=== PATIENT | female | born 1980 | race Caucasian/White ===

== ENCOUNTER 2019-12-19 21:12 | Emergency (ER) | payer BC ==
--- NOTE | 2019-12-19 21:47 | EDM.PDOC ---
ED HPI GENERAL MEDICAL PROBLEM - General Chief Complaint: General Stated Complaint: covid exposure Time Seen by Provider: 12/19/19 21:29 - History of Present Illness INITIAL COMMENTS - FREE TEXT/NARRATIVE: The patient was living with a sibling in [place] from the first until the seventh of this month. He was continuous expose the patient he now found out is asymptomatic with COVID positive. His sister was COVID positive. Patient has no symptoms. He does want to know if he should go back to work or would expose his work mates. - Related Data Allergies Allergy/AdvReac Type Severity Reaction Status Date / Time No Known Allergies Allergy Verified 12/19/19 21:33 Home Meds: Home Meds Aspirin 81 mg PO DAILY 12/19/19 [History] Pnv No.95/Ferrous Fum/Folic AC [ Caplet] 1 tab PO DAILY 12/19/19 [History] Past Medical History Genitourinary History: Reports: Renal Calculus - Past Surgical History HEENT Surgical History: Reports: Adenoidectomy, Tonsillectomy GI Surgical History: Reports: Appendectomy Social & Family History - Tobacco Use Smoking Status *Q: Never Smoker Second Hand Smoke Exposure: Yes - Recreational Drug Use Recreational Drug Use: No ED ROS GENERAL - Review of Systems Review Of Systems: Comprehensive ROS is negative, except as noted in HPI. ED EXAM, GENERAL - Physical Exam Exam: See Below Free Text/Narrative:: My physical exam is in the HPI Course - Vital Signs Last Recorded V/S: Last Vital Signs Temp 96.4 F L 12/19/19 21:31 Pulse 66 12/19/19 21:31 Resp 16 12/19/19 21:31 BP 116/71 12/19/19 21:31 Pulse Ox 98 12/19/19 21:31 Departure - Departure Time of Disposition: 21:46 Disposition: Home, Self-Care 01 Condition: Good Clinical Impression: Exposure to infectious patient in closed environment for extended period - Discharge Information Instructions: Infection Prevention in the Home Referrals: PCP,None [Primary Care Provider] - Forms: ED Department Discharge Additional Instructions: Is reviewed the COVID-19 [place] instructions per CDC guidelines. The clinic in [place] is open on the weekend and our respiratory clinic can do your testing on Sunday if you come in the morning The following information is given to patients seen in the emergency department who are being discharged to home. This information is to outline your options for follow-up care. We provide all patients seen in our emergency department with a follow-up referral. The need for follow-up, as well as the timing and circumstances, are variable depending upon the specifics of your emergency department visit. If you don't have a primary care physician on staff, we will provide you with a referral. We always advise you to contact your personal physician following an emergency department visit to inform them of the circumstance of the visit and for follow-up with them and/or the need for any referrals to a consulting specialist. The emergency department will also refer you to a specialist when appropriate. This referral assures that you have the opportunity for follow-up care with a specialist. All of these measure are taken in an effort to provide you with optimal care, which includes your follow-up. Under all circumstances we always encourage you to contact your private physician who remains a resource for coordinating your care. When calling for follow-up care, please make the office aware that this follow-up is from your recent emergency room visit. If for any reason you are refused follow-up, please contact the [facility] Emergency Department at and asked to speak to the emergency department charge nurse. Sepsis Event Note (ED) - Evaluation Sepsis Screening Result: No Definite Risk - Focused Exam Vital Signs: Vital Signs Temp Pulse Resp BP Pulse Ox 12/19/19 21:31 96.4 F L 66 16 116/71 98
== END 2019-12-19 22:06 | disposition home or self-care (01) ==
LOC: MW.ED 21:12
DX: Z20.828 Contact with and (suspected) exposure to other viral communicable diseases (principal); Z77.22 Contact with and (suspected) exposure to environmental tobacco smoke (acute) (chronic); Z79.82 Long term (current) use of aspirin
CPT/HCPCS: 99281

== ENCOUNTER 2020-03-11 00:13 | Observation (INO) | payer BC ==
[2020-03-11] MEDS ORDERED: Lidocaine 1% 50 ML MDV INJECT PRN (00:30)
[2020-03-11] MEDS ORDERED: Misoprostol 200 MCG Tab PO PRN (00:30)
[2020-03-11] MEDS ORDERED: Terbutaline 1 MG/ML SDV SUBCUT PRN (00:30)
[2020-03-11] MEDS ORDERED: Ondansetron 4 MG Tab.DIS PO PRN (00:30)
[2020-03-11] MEDS ORDERED: Misoprostol 25 MCG (1/4 of 100 MCG) Tab VAG PRN (00:30)
[2020-03-11] MEDS ORDERED: Methylergonovine 0.2 MG/1 ML Amp IM PRN (00:30)
[2020-03-11] MEDS ORDERED: Sodium Chloride 0.9% 2.5 ML Syringe FLUSH PRN (00:30)
[2020-03-11] MEDS ORDERED: hydrOXYzine HCl 25 MG Tab PO PRN (00:30)
[2020-03-11] MEDS ORDERED: Butorphanol 1 MG/ML SDV IVPUSH PRN (00:30)
[2020-03-11] MEDS ORDERED: Sodium Chloride 0.9% 10 ML SDV IV PRN (00:30)
[2020-03-11] MEDS ORDERED: Water For Irrigation,Sterile 1,000 ML Container IRR PRN (00:30)
[2020-03-11] MEDS ORDERED: Nalbuphine 10 MG/1 ML Vial IVPUSH PRN (00:30)
[2020-03-11] MEDS ORDERED: Carboprost Tromethamine 250 MCG/1 ML Amp IM PRN (00:30)
[2020-03-11] MEDS ORDERED: Tranexamic Acid 1,000 MG in Sodium Chloride 0.9% 100 ML IV PRN (00:30)
[2020-03-11] MEDS ORDERED: Oxytocin/0.9 % Sodium Chloride 30 UNIT/500 ML BAG IV SCH ×2 (00:30)
[2020-03-11] MEDS ORDERED: Sodium Chloride 0.9% 10 ML Syringe FLUSH PRN (00:30)
[2020-03-11] MEDS: Misoprostol 25 MCG (1/4 of 100 MCG) Tab PO SCH ×4 (02:01→20:54)
[2020-03-11] MEDS: Lactated Ringers 1,000 ML IV SCH ×2 (02:59→04:01)
[2020-03-11] MEDS: Misoprostol 25 MCG (1/4 of 100 MCG) Tab VAG PRN ×3 (07:57→20:54)
--- NOTE | 2020-03-11 08:41 | PCM.LDHP ---
L&D History of Present Illness - General Date of Service: 03/11/20 Admit Problem/Dx: Patient Status Order with Admit Dx/Problem 03/11/20 00:30 Patient Status [ADT] Routine Admission Diagnosis/Problem Admission Diagnosis/Problem 03/11/20 08:35 at 38 6/7 weeks (ELVIRA: 03/19/20) presenting to L&D for IOL due to AMA and GDMA1. This is the result of IVF. Most recent growth ultrasound on 02/26/20 noted EFW 2523 grams (5 lb 9 oz), 10th percentile. Rubella immune, A+, GBS negative. Vertex presentation confirmed by Hemnath's. SVE 0cm/thick/closed/posterior/-1 station per nurse report Source of Information: Patient History Limitations: Reports: No Limitations - Related Data Allergies/Adverse Reactions: Allergies Allergy/AdvReac Type Severity Reaction Status Date / Time No Known Allergies Allergy Verified 03/04/20 11:43 Home Medications: Home Meds Aspirin 81 mg PO DAILY 12/19/19 [History] Pnv No.95/Ferrous Fum/Folic AC [ Caplet] 1 tab PO DAILY 12/19/19 [History] Past Medical History Genitourinary History: Reports: Renal Calculus [employer]IVE History: Reports: Endocrine/Metabolic History: Reports: Diabetes, Gestational - Past Surgical History HEENT Surgical History: Reports: Adenoidectomy, Tonsillectomy GI Surgical History: Reports: Appendectomy Social & Family History - Family History Family Medical History: No Pertinent Family History - Tobacco Use Tobacco Use Status *Q: Never Tobacco User Second Hand Smoke Exposure: No - Caffeine Use Caffeine Use: Reports: Coffee, Soda, Tea - Recreational Drug Use Recreational Drug Use: No H&P Review of Systems - Review of Systems: Review Of Systems: See Below General: Reports: No Symptoms HEENT: Reports: No Symptoms Pulmonary: Reports: No Symptoms Cardiovascular: Reports: No Symptoms Gastrointestinal: Reports: No Symptoms Genitourinary: Reports: No Symptoms Musculoskeletal: Reports: No Symptoms Skin: Reports: No Symptoms Psychiatric: Reports: No Symptoms Neurological: Reports: No Symptoms Hematologic/Lymphatic: Reports: No Symptoms Immunologic: Reports: No Symptoms L&D Exam - Exam Exam: See Below - Vital Signs Weight: 224 lb - OB Specific Movement: Active Heart Tones: Present Heart Rate (FHR) Variability: Moderate (6-25 bmp) Presentation: Vertex - Lambert Score Lambert Score Cervix Position: Posterior Lambert Score Consistency: Medium Lambert Score Effacement: 0-30% Lambert Score Dilation: Closed Lambert Score 's Station: -1 ,0 Lambert Score Total: 3 - Exam General: Alert, Oriented, Cooperative Lungs: Normal Respiratory Effort Cardiovascular: Regular Rate, Regular Rhythm GI/Abdominal Exam: Soft, Non-Tender Rectal Exam: Deferred Genitourinary: Deferred Back Exam: Normal Inspection, Full Range of Motion Extremities: Normal Inspection, Normal Range of Motion, Non-Tender, Normal Capillary Refill Skin: Warm, Dry, Intact Neurological: Normal Speech, Normal Tone, Sensation Intact Psychiatric: Alert, Normal Affect, Normal Mood - Patient Data Lab Results Last 24 hrs: Laboratory Results - last 24 hr 03/11/20 03/11/20 Range/Units 00:50 00:50 WBC 10.03 (4.0-11.0) K/uL RBC 4.18 L (4.30-5.90) M/uL Hgb 12.5 (12.0-16.0) g/dL Hct 37.6 (36.0-46.0) % MCV 90.0 (80.0-98.0) fL MCH 29.9 (27.0-32.0) pg MCHC 33.2 (31.0-37.0) g/dL RDW Std Deviation 43.8 (28.0-62.0) fl RDW Coeff of Rafael 14 (11.0-15.0) % Plt Count 218 (150-400) K/uL MPV 10.50 (7.40-12.00) fL Blood Type A POSITIVE Antibody Screen NEGATIVE Result Diagrams: 03/11/20 00:50 - Problem List (1) Supervision of normal IUP (intrauterine ) in primigravida SNOMED Code(s): 52936192, 257449201, 570372694, 616219692 ICD Code: Z34.00 - ENCNTR FOR SUPRVSN OF NORMAL FIRST , UNSP TRIMESTER Status: Acute Priority: High Current Visit: Yes Qualifiers: Trimester: third trimester Qualified Code(s): Z34.03 - Encounter for supervision of normal first , third trimester (2) conceived through in vitro fertilization SNOMED Code(s): 54529037 ICD Code: O09.819 - SUPRVSN OF PREG RSLT FROM ASSISTED REPRODCTV TECH, UNSP TRI Status: Acute Priority: High Current Visit: Yes Qualifiers: Trimester: third trimester Qualified Code(s): O09.813 - Supervision of resulting from assisted reproductive technology, third trimester (3) AMA (advanced maternal age) primigravida 35+ SNOMED Code(s): 07423229 ICD Code: O09.519 - SUPERVISION OF ELDERLY PRIMIGRAVIDA, UNSPECIFIED TRIMESTER Status: Acute Priority: High Current Visit: Yes Qualifiers: Trimester: third trimester Qualified Code(s): O09.513 - Supervision of elderly primigravida, third trimester Problem List Initiated/Reviewed/Updated: Yes Orders Last 24hrs: Active Orders 24 hr Category Date Time Status Patient Status [ADT] Routine ADT 03/11/20 00:30 Active Bedrest Bathroom Privileges [RC] ASDIRECTED Care 03/11/20 00:30 Active Communication Order [RC] ASDIRECTED Care 03/11/20 00:30 Active Communication Order [RC] ASDIRECTED Care 03/11/20 00:30 Active Communication Order [RC] ASDIRECTED Care 03/11/20 00:30 Active May Shower [RC] ASDIRECTED Care 03/11/20 00:30 Active Notify Provider [RC] PRN Care 03/11/20 00:30 Active Notify Provider [RC] PRN Care 03/11/20 00:30 Active Notify Provider [RC] PRN Care 03/11/20 00:30 Active Notify Provider [RC] STAT Care 03/11/20 00:30 Active Oxygen Therapy [RC] ASDIRECTED Care 03/11/20 00:30 Active Up ad Irene [RC] ASDIRECTED Care 03/11/20 00:30 Active Vital Signs [RC] PER UNIT ROUTINE Care 03/11/20 00:30 Active Vital Signs [RC] PER UNIT ROUTINE Care 03/11/20 00:30 Active Regular Diet [DIET] Diet 03/11/20 Breakfast Active RPR (SYPHILIS SERO) W/ RFLX [REF] Routine Lab 03/11/20 00:50 Received Butorphanol [Stadol] Med 03/11/20 00:30 Active 1 mg IVPUSH Q1H PRN Carboprost Tromethamine [Hemabate DS] Med 03/11/20 00:30 Active 250 mcg IM ASDIRECTED PRN Lactated Ringers [Ringers, Lactated] 1,000 ml Med 03/11/20 00:30 Active IV ASDIRECTED Lidocaine 1% [Xylocaine 1%] Med 03/11/20 00:30 Active 50 ml INJECT ONETIME PRN Methylergonovine [Methergine] Med 03/11/20 00:30 Active 0.2 mg IM ASDIRECTED PRN Nalbuphine [Nubain] Med 03/11/20 00:30 Active 10 mg IVPUSH Q1H PRN Ondansetron [Zofran ODT] Med 03/11/20 00:30 Active 4 mg PO Q6H PRN Oxytocin/0.9 % Sodium Chloride [Oxytocin 30 Unit/500 ML Med 03/11/20 00:30 Active -NS] 30 unit in 500 ml IV TITRATE Oxytocin/0.9 % Sodium Chloride [Oxytocin 30 Unit/500 ML Med 03/11/20 00:30 Active -NS] 30 unit in 500 ml IV TITRATE Sodium Chloride 0.9% [Normal Saline] Med 03/11/20 00:30 Active 10 ml IV ASDIRECTED PRN Sodium Chloride 0.9% [Saline Flush] Med 03/11/20 00:30 Active 10 ml FLUSH ASDIRECTED PRN Sodium Chloride 0.9% [Saline Flush] Med 03/11/20 00:30 Active 2.5 ml FLUSH ASDIRECTED PRN Terbutaline [Brethine] Med 03/11/20 00:30 Active 0.25 mg SUBCUT ASDIRECTED PRN Tranexamic Acid [Cyklokapron] 1,000 mg Med 03/11/20 00:30 Active Sodium Chloride 0.9% [Normal Saline] 100 ml IV ONETIME Water For Irrigation,Sterile [Sterile Water for Med 03/11/20 00:30 Active Irrigation] 1,000 ml IRR ASDIRECTED PRN hydrOXYzine HCL [Atarax] Med 03/11/20 00:30 Active 50 mg PO Q6H PRN miSOPROStoL [Cytotec] Med 03/11/20 00:30 Active 200 mcg PO ONETIME PRN miSOPROStoL [Cytotec] Med 03/11/20 04:00 Active 25 mcg PO Q4HR miSOPROStoL [Cytotec] Med 03/11/20 00:30 Active 25 mcg VAG ONETIME PRN miSOPROStoL [Cytotec] Med 03/11/20 00:30 Active 25 mcg VAG Q4H PRN Scalp Electrode [WOMSER] Per Unit Routine Oth 03/11/20 00:30 Ordered Medication Administration Instruction [OM.PC] Q3H Oth 03/11/20 00:30 Ordered Peripheral IV Insertion Adult [OM.PC] Routine Oth 03/11/20 00:30 Ordered Resuscitation Status Routine Resus Stat 03/11/20 00:30 Ordered Medication Orders Butorphanol Tartrate (Stadol) 1 mg IVPUSH Q1H PRN PRN Reason: Pain Carboprost Tromethamine (Hemabate Ds) 250 mcg IM ASDIRECTED PRN PRN Reason: Post Hemorrhage Hydroxyzine HCl (Atarax) 50 mg PO Q6H PRN PRN Reason: Itching Oxytocin/Sodium Chloride (Oxytocin 30 Unit/500 Ml-Ns) 30 unit in 500 mls @ 999 mls/hr IV TITRATE EAN Tranexamic Acid 1,000 mg/ (Sodium Chloride) 110 mls @ 660 mls/hr IV ONETIME PRN PRN Reason: Bleeding Oxytocin/Sodium Chloride (Oxytocin 30 Unit/500 Ml-Ns) 30 unit in 500 mls @ 2 mls/hr IV TITRATE EAN; Protocol Lactated Ringer's (Ringers, Lactated) 1,000 mls @ 150 mls/hr IV ASDIRECTED EAN Last Admin: 03/11/20 04:01 Dose: 125 mls/hr Documented by: Infusion: 03/11/20 04:00 Dose: 999 mls/hr Documented by: Admin: 03/11/20 02:59 Dose: 999 mls/hr Documented by: RENU Lidocaine HCl (Xylocaine 1%) 50 ml INJECT ONETIME PRN PRN Reason: Laceration repair Methylergonovine Maleate (Methergine) 0.2 mg IM ASDIRECTED PRN PRN Reason: Post Hemorrhage Misoprostol (Cytotec) 200 mcg PO ONETIME PRN PRN Reason: Post Hemorrhage Misoprostol (Cytotec) 25 mcg VAG ONETIME PRN PRN Reason: Cervical Ripening Last Admin: 03/11/20 02:00 Dose: 25 mcg Documented by: RENU Misoprostol (Cytotec) 25 mcg VAG Q4H PRN PRN Reason: Cervical Ripening Last Admin: 03/11/20 07:57 Dose: 25 mcg Documented by: GERMAN Misoprostol (Cytotec) 25 mcg PO Q4HR EAN Last Admin: 03/11/20 07:58 Dose: 25 mcg Documented by: Admin: 03/11/20 02:01 Dose: 25 mcg Documented by: RENU Nalbuphine HCl (Nubain) 10 mg IVPUSH Q1H PRN PRN Reason: Pain (severe 7-10) Ondansetron HCl (Zofran Odt) 4 mg PO Q6H PRN PRN Reason: Nausea/Vomiting Sodium Chloride (Saline Flush) 10 ml FLUSH ASDIRECTED PRN PRN Reason: Keep Vein Open Sodium Chloride (Saline Flush) 2.5 ml FLUSH ASDIRECTED PRN PRN Reason: Keep Vein Open Sodium Chloride (Normal Saline) 10 ml IV ASDIRECTED PRN PRN Reason: IV Use Sterile Water (Sterile Water For Irrigation) 1,000 ml IRR ASDIRECTED PRN PRN Reason: delivery Terbutaline Sulfate (Brethine) 0.25 mg SUBCUT ASDIRECTED PRN PRN Reason: Tacysystole Assessment/Plan Comment:: Admit A: at 38 6/7 weeks (ELVIRA: 03/19/20) presenting to L&D for IOL due to AMA and GDMA1. This is the result of IVF. Most recent growth ultrasound on 02/26/20 noted EFW 2523 grams (5 lb 9 oz), 10th percentile. Rubella immune, A+, GBS negative. Vertex presentation confirmed by Hemanth's. SVE 0cm/thick/closed/posterior/-1 station per nurse report P: Admit for induction of labor; cytotec to pitocin; epidural PRN; anticipate ; Dr. Ambrocio updated.
[2020-03-11] MEDS ORDERED: Acetaminophen 500 MG Tab PO PRN (16:04)
--- NOTE | 2020-03-11 23:10 | PCM.DCSUM1 ---
Discharge Summary - Hospital Course Free Text/Narrative:: Discharge home. Continue dietary modifications and glucose monitoring at home for GDMA1. Plan to try IOL Sunday (03/14) or Sunday (03/15) as staffing permits. Diagnosis: Stroke: No Modified Eda Scale: No Symptoms at All Modified Fisher Scale Score: 0 - Discharge Data Discharge Date: 03/11/20 Discharge Disposition: Home, Self-Care 01 Condition: Good - Referral to Home Health Primary Care Physician: PCP None - Discharge Diagnosis/Problem(s) (1) Supervision of normal IUP (intrauterine ) in primigravida SNOMED Code(s): 30788995, 634690689, 536953108, 116425290 ICD Code: Z34.00 - ENCNTR FOR SUPRVSN OF NORMAL FIRST , UNSP TRIMESTER Status: Acute Priority: High Current Visit: Yes Qualifiers: Trimester: third trimester Qualified Code(s): Z34.03 - Encounter for supervision of normal first , third trimester (2) conceived through in vitro fertilization SNOMED Code(s): 12571702 ICD Code: O09.819 - SUPRVSN OF PREG RSLT FROM ASSISTED REPRODCTV TECH, UNSP TRI Status: Acute Priority: High Current Visit: Yes Qualifiers: Trimester: third trimester Qualified Code(s): O09.813 - Supervision of resulting from assisted reproductive technology, third trimester (3) AMA (advanced maternal age) primigravida 35+ SNOMED Code(s): 10302894 ICD Code: O09.519 - SUPERVISION OF ELDERLY PRIMIGRAVIDA, UNSPECIFIED TRIM CARLA Status: Acute Priority: High Current Visit: Yes Qualifiers: Trimester: third trimester Qualified Code(s): O09.513 - Supervision of elderly primigravida, third trimester - Patient Instructions Diet: Drink 8-10+ Glasses/Day, Diabetic Diet Activity: As Tolerated Driving: May Drive Today Showering/Bathing: May Shower - Discharge Plan *PRESCRIPTION DRUG MONITORING PROGRAM REVIEWED*: Not Applicable *COPY OF PRESCRIPTION DRUG MONITORING REPORT IN PATIENT [facility]WE[facility]: Not Applicable Home Medications: Home Meds Aspirin 81 mg PO DAILY 12/19/19 [History] Pnv No.95/Ferrous Fum/Folic AC [ Caplet] 1 tab PO DAILY 12/19/19 [History] - Discharge Summary/Plan Comment DC Time >30 min.: Yes - General Info Date of Service: 03/11/20 Admission Dx/Problem (Free Text: Patient Status Order with Admit Dx/Problem 03/11/20 00:30 Patient Status [ADT] Routine Admission Diagnosis/Problem Admission Diagnosis/Problem 03/11/20 08:35 at 38 6/7 weeks (ELVIRA: 03/19/20) presenting to L&D for IOL due to AMA and GDMA1. This is the result of IVF. Most recent growth ultrasound on 02/26/20 noted EFW 2523 grams (5 lb 9 oz), 10th percentile. Rubella immune, A+, GBS negative. Vertex presentation confirmed by Hemanth's. SVE 0cm/thick/closed/posterior/-1 station per nurse report Functional Status: Reports: Pain Controlled, Tolerating Diet, Ambulating, Urinating - Review of Systems General: Reports: No Symptoms HEENT: Reports: No Symptoms Pulmonary: Reports: No Symptoms Cardiovascular: Reports: No Symptoms Gastrointestinal: Reports: No Symptoms Genitourinary: Reports: No Symptoms Musculoskeletal: Reports: No Symptoms Skin: Reports: No Symptoms Neurological: Reports: No Symptoms Psychiatric: Reports: No Symptoms - Patient Data Weight - Most Recent: 224 lb Lab Results - Last 24 hrs: Laboratory Results - last 24 hr 03/11/20 03/11/20 Range/Units 00:50 00:50 WBC 10.03 (4.0-11.0) K/uL RBC 4.18 L (4.30-5.90) M/uL Hgb 12.5 (12.0-16.0) g/dL Hct 37.6 (36.0-46.0) % MCV 90.0 (80.0-98.0) fL MCH 29.9 (27.0-32.0) pg MCHC 33.2 (31.0-37.0) g/dL RDW Std Deviation 43.8 (28.0-62.0) fl RDW Coeff of Rafael 14 (11.0-15.0) % Plt Count 218 (150-400) K/uL MPV 10.50 (7.40-12.00) fL Blood Type A POSITIVE Antibody Screen NEGATIVE Med Orders - Current: Current Medications Acetaminophen (Tylenol Extra Strength) 1,000 mg PO Q6H PRN PRN Reason: Headache/Pain Butorphanol Tartrate (Stadol) 1 mg IVPUSH Q1H PRN PRN Reason: Pain Carboprost Tromethamine (Hemabate Ds) 250 mcg IM ASDIRECTED PRN PRN Reason: Post Hemorrhage Hydroxyzine HCl (Atarax) 50 mg PO Q6H PRN PRN Reason: Itching Oxytocin/Sodium Chloride (Oxytocin 30 Unit/500 Ml-Ns) 30 unit in 500 mls @ 999 mls/hr IV TITRATE EAN Tranexamic Acid 1,000 mg/ (Sodium Chloride) 110 mls @ 660 mls/hr IV ONETIME PRN PRN Reason: Bleeding Oxytocin/Sodium Chloride (Oxytocin 30 Unit/500 Ml-Ns) 30 unit in 500 mls @ 2 mls/hr IV TITRATE EAN; Protocol Lactated Ringer's (Ringers, Lactated) 1,000 mls @ 150 mls/hr IV ASDIRECTED EAN Last Admin: 03/11/20 04:01 Dose: 125 mls/hr Documented by: Lidocaine HCl (Xylocaine 1%) 50 ml INJECT ONETIME PRN PRN Reason: Laceration repair Methylergonovine Maleate (Methergine) 0.2 mg IM ASDIRECTED PRN PRN Reason: Post Hemorrhage Misoprostol (Cytotec) 200 mcg PO ONETIME PRN PRN Reason: Post Hemorrhage Misoprostol (Cytotec) 25 mcg VAG ONETIME PRN PRN Reason: Cervical Ripening Last Admin: 03/11/20 02:00 Dose: 25 mcg Documented by: Misoprostol (Cytotec) 25 mcg VAG Q4H PRN PRN Reason: Cervical Ripening Last Admin: 03/11/20 20:54 Dose: 25 mcg Documented by: Misoprostol (Cytotec) 25 mcg PO Q4HR EAN Last Admin: 03/11/20 20:54 Dose: 25 mcg Documented by: Nalbuphine HCl (Nubain) 10 mg IVPUSH Q1H PRN PRN Reason: Pain (severe 7-10) Ondansetron HCl (Zofran Odt) 4 mg PO Q6H PRN PRN Reason: Nausea/Vomiting Sodium Chloride (Saline Flush) 10 ml FLUSH ASDIRECTED PRN PRN Reason: Keep Vein Open Sodium Chloride (Saline Flush) 2.5 ml FLUSH ASDIRECTED PRN PRN Reason: Keep Vein Open Sodium Chloride (Normal Saline) 10 ml IV ASDIRECTED PRN PRN Reason: IV Use Sterile Water (Sterile Water For Irrigation) 1,000 ml IRR ASDIRECTED PRN PRN Reason: delivery Terbutaline Sulfate (Brethine) 0.25 mg SUBCUT ASDIRECTED PRN PRN Reason: Tacysystole - Exam General: Reports: Alert, Oriented, Cooperative, No Acute Distress Lungs: Reports: Normal Respiratory Effort Cardiovascular: Reports: Regular Rate, Regular Rhythm GI/Abdominal Exam: Soft, Non-Tender (Female) Exam: Deferred Rectal (Female) Exam: Deferred Back Exam: Reports: Normal Inspection, Full Range of Motion Extremities: Normal Inspection, Normal Range of Motion, Non-Tender, Normal Capillary Refill Skin: Reports: Warm, Dry, Intact Neurological: Reports: No New Focal Deficit, Normal Speech, Normal Tone, Strength Equal Bilateral, Sensation Intact Psy/Mental Status: Reports: Alert, Normal Affect, Normal Mood
--- NOTE | 2020-03-11 23:18 | PCM.PNLD ---
Labor Progress Note - VS & Meds Active Medications: Current Medications Acetaminophen (Tylenol Extra Strength) 1,000 mg PO Q6H PRN PRN Reason: Headache/Pain Butorphanol Tartrate (Stadol) 1 mg IVPUSH Q1H PRN PRN Reason: Pain Carboprost Tromethamine (Hemabate Ds) 250 mcg IM ASDIRECTED PRN PRN Reason: Post Hemorrhage Hydroxyzine HCl (Atarax) 50 mg PO Q6H PRN PRN Reason: Itching Oxytocin/Sodium Chloride (Oxytocin 30 Unit/500 Ml-Ns) 30 unit in 500 mls @ 999 mls/hr IV TITRATE EAN Tranexamic Acid 1,000 mg/ (Sodium Chloride) 110 mls @ 660 mls/hr IV ONETIME PRN PRN Reason: Bleeding Oxytocin/Sodium Chloride (Oxytocin 30 Unit/500 Ml-Ns) 30 unit in 500 mls @ 2 mls/hr IV TITRATE EAN; Protocol Lactated Ringer's (Ringers, Lactated) 1,000 mls @ 150 mls/hr IV ASDIRECTED EAN Last Admin: 03/11/20 04:01 Dose: 125 mls/hr Documented by: Lidocaine HCl (Xylocaine 1%) 50 ml INJECT ONETIME PRN PRN Reason: Laceration repair Methylergonovine Maleate (Methergine) 0.2 mg IM ASDIRECTED PRN PRN Reason: Post Hemorrhage Misoprostol (Cytotec) 200 mcg PO ONETIME PRN PRN Reason: Post Hemorrhage Misoprostol (Cytotec) 25 mcg VAG ONETIME PRN PRN Reason: Cervical Ripening Last Admin: 03/11/20 02:00 Dose: 25 mcg Documented by: Misoprostol (Cytotec) 25 mcg VAG Q4H PRN PRN Reason: Cervical Ripening Last Admin: 03/11/20 20:54 Dose: 25 mcg Documented by: Misoprostol (Cytotec) 25 mcg PO Q4HR EAN Last Admin: 03/11/20 20:54 Dose: 25 mcg Documented by: Nalbuphine HCl (Nubain) 10 mg IVPUSH Q1H PRN PRN Reason: Pain (severe 7-10) Ondansetron HCl (Zofran Odt) 4 mg PO Q6H PRN PRN Reason: Nausea/Vomiting Sodium Chloride (Saline Flush) 10 ml FLUSH ASDIRECTED PRN PRN Reason: Keep Vein Open Sodium Chloride (Saline Flush) 2.5 ml FLUSH ASDIRECTED PRN PRN Reason: Keep Vein Open Sodium Chloride (Normal Saline) 10 ml IV ASDIRECTED PRN PRN Reason: IV Use Sterile Water (Sterile Water For Irrigation) 1,000 ml IRR ASDIRECTED PRN PRN Reason: delivery Terbutaline Sulfate (Brethine) 0.25 mg SUBCUT ASDIRECTED PRN PRN Reason: Tacysystole - Uterine Contractions Uterine Monitoring Mode: External [place] Contraction Intensity: Mild Uterine Resting Tone: Soft - Monitoring Heart Rate (FHR) Variability: Moderate (6-25 bmp) Accelerations: Present with Movement Strip Review: Category I - Vaginal Exam Dilation (cm): 0 Effacement (Percent): 0 Station: -1 Cervical Position: Midposition Vaginal Exam Comment: SVE performed by Tequila Hanson RN - Labor Progress (Free Text) Labor Progress: Patient was admitted at approximately 0015 this AM for attempted induction of labor at 38 6/7 weeks (ELVIRA: 03/19/20) due to AMA and GDMA1. She is a . She received 25 mcg PO & 25mcg PV of cytotec at 0200 and again at 0757. At 1303, she received 25mcg PV cytotec. Finally, at 2054, she received 25 mcg PO and 25 mcg PV cytotec. After 23 hours and 4 doses of cytotec, her cervix remains unchanged. After consultation with Dr. Ambrocio, we have decided to discharge her home. Due to insufficient staffing and having other medical inductions on hold, it would not be prudent to continue to attempt induction at this time. She has been controlling her blood glucose well at home with diet, her BP is WNL, she has had regular reactive NSTs, and her most recent growth ultrasound on 02/26/20 noted an EFW of 1523 grams (5 lb 9 oz). We plan to discharge her home and try again on Sunday (03/14) or Sunday (03/15) as staffing allows. Will obtain reactive NST prior to discharge. I have discussed this plan with the patient and her partner; advise she is to continue with dietary modifications and blood glucose monitoring for GDMA1. Reviewed signs/symptoms of active labor, warning signs, and when to report to L&D. She verbalizes understanding and is agreeable with plan of care.
--- NOTE | 2020-03-11 23:46 | PCM.DCSUM1 ---
Discharge Summary - Hospital Course Free Text/Narrative:: Patient was admitted at approximately 0015 this AM for attempted induction of labor at 38 6/7 weeks (ELVIRA: 03/19/20) due to AMA and GDMA1. She is a . She received 25 mcg PO & 25mcg PV of cytotec at 0200 and again at 0757. At 1303, she received 25mcg PV cytotec. Finally, at 2054, she received 25 mcg PO and 25 mcg PV cytotec. After 23 hours and 4 doses of cytotec, her cervix remains unchanged. After consultation with Dr. Ambrocio, we have decided to discharge her home. Due to insufficient staffing and having other medical inductions on hold, it would not be prudent to continue to attempt induction at this time. She has been controlling her blood glucose well at home with diet, her BP is WNL, she has had regular reactive NSTs, and her most recent growth ultrasound on 02/26/20 noted an EFW of 1523 grams (5 lb 9 oz). We plan to discharge her home and try again on Sunday (03/14) or Sunday (03/15) as staffing allows. Will obtain reactive NST prior to discharge. I have discussed this plan with the patient and her partner; advise she is to continue with dietary modifications and blood glucose monitoring for GDMA1. Reviewed signs/symptoms of active labor, warning signs, and when to report to L&D. She verbalizes understanding and is agreeable with plan of care. Diagnosis: Stroke: No Modified Eda Scale: No Symptoms at All Modified Eda Scale Score: 0 - Discharge Data Discharge Date: 03/11/20 Discharge Disposition: Home, Self-Care 01 Condition: Good - Referral to Home Health Primary Care Physician: PCP None - Discharge Diagnosis/Problem(s) (1) Supervision of normal IUP (intrauterine ) in primigravida SNOMED Code(s): 23803810, 146256562, 406735502, 314700705 ICD Code: Z34.00 - ENCNTR FOR SUPRVSN OF NORMAL FIRST , UNSP TRIME STER Status: Acute Priority: High Current Visit: Yes Qualifiers: Trimester: third trimester Qualified Code(s): Z34.03 - Encounter for supervision of normal first , third trimester (2) conceived through in vitro fertilization SNOMED Code(s): 15602994 ICD Code: O09.819 - SUPRVSN OF PREG RSLT FROM ASSISTED REPRODCTV TECH, UNSP TRI Status: Acute Priority: High Current Visit: Yes Qualifiers: Trimester: third trimester Qualified Code(s): O09.813 - Supervision of resulting from assisted reproductive technology, third trimester (3) AMA (advanced maternal age) primigravida 35+ SNOMED Code(s): 66935251 ICD Code: O09.519 - SUPERVISION OF ELDERLY PRIMIGRAVIDA, UNSPECIFIED TRIMESTER Status: Acute Priority: High Current Visit: Yes Qualifiers: Trimester: third trimester Qualified Code(s): O09.513 - Supervision of e lderly primigravida, third trimester - Patient Instructions Diet: Drink 8-10+ Glasses/Day, Diabetic Diet Activity: As Tolerated Driving: May Drive Today Showering/Bathing: May Shower - Discharge Plan *PRESCRIPTION DRUG MONITORING PROGRAM REVIEWED*: Not Applicable *COPY OF PRESCRIPTION DRUG MONITORING REPORT IN PATIENT MAXWELL: Not Applicable Home Medications: Home Meds Aspirin 81 mg PO DAILY 12/19/19 [History] Pnv No.95/Ferrous Fum/Folic AC [ Caplet] 1 tab PO DAILY 12/19/19 [History] Oxygen Therapy Mode: Room Air - Discharge Summary/Plan Comment DC Time >30 min.: Yes - General Info Date of Service: 03/11/20 Functional Status: Reports: Pain Controlled, Tolerating Diet, Ambulating, Urinating - Review of Systems General: Reports: No Symptoms HEENT: Reports: No Symptoms Pulmonary: Reports: No Symptoms Cardiovascular: Reports: No Symptoms Gastrointestinal: Reports: No Symptoms Genitourinary: Reports: No Symptoms Musculoskeletal: Reports: No Symptoms Skin: Reports: No Symptoms Neurological: Reports: No Symptoms Psychiatric: Reports: No Symptoms - Patient Data Weight - Most Recent: 224 lb Lab Results - Last 24 hrs: Laboratory Results - last 24 hr 03/11/20 03/11/20 Range/Units 00:50 00:50 WBC 10.03 (4.0-11.0) K/uL RBC 4.18 L (4.30-5.90) M/uL Hgb 12.5 (12.0-16.0) g/dL Hct 37.6 (36.0-46.0) % MCV 90.0 (80.0-98.0) fL MCH 29.9 (27.0-32.0) pg MCHC 33.2 (31.0-37.0) g/dL RDW Std Deviation 43.8 (28.0-62.0) fl RDW Coeff of Rafael 14 (11.0-15.0) % Plt Count 218 (150-400) K/uL MPV 10.50 (7.40-12.00) fL Blood Type A POSITIVE Antibody Screen NEGATIVE Med Orders - Current: Current Medications Acetaminophen (Tylenol Extra Strength) 1,000 mg PO Q6H PRN PRN Reason: Headache/Pain Butorphanol Tartrate (Stadol) 1 mg IVPUSH Q1H PRN PRN Reason: Pain Carboprost Tromethamine (Hemabate Ds) 250 mcg IM ASDIRECTED PRN PRN Reason: Post Hemorrhage Hydroxyzine HCl (Atarax) 50 mg PO Q6H PRN PRN Reason: Itching Oxytocin/Sodium Chloride (Oxytocin 30 Unit/500 Ml-Ns) 30 unit in 500 mls @ 999 mls/hr IV TITRATE [facility] Tranexamic Acid 1,000 mg/ (Sodium Chloride) 110 mls @ 660 mls/hr IV ONETIME PRN PRN Reason: Bleeding Oxytocin/Sodium Chloride (Oxytocin 30 Unit/500 Ml-Ns) 30 unit in 500 mls @ 2 mls/hr IV TITRATE [facility]; Protocol Lactated Ringer's (Ringers, Lactated) 1,000 mls @ 150 mls/hr IV ASDIRECTED EAN Last Admin: 03/11/20 04:01 Dose: 125 mls/hr Documented by: Lidocaine HCl (Xylocaine 1%) 50 ml INJECT ONETIME PRN PRN Reason: Laceration repair Methylergonovine Maleate (Methergine) 0.2 mg IM ASDIRECTED PRN PRN Reason: Post Hemorrhage Misoprostol (Cytotec) 200 mcg PO ONETIME PRN PRN Reason: Post Hemorrhage Misoprostol (Cytotec) 25 mcg VAG ONETIME PRN PRN Reason: Cervical Ripening Last Admin: 03/11/20 02:00 Dose: 25 mcg Documented by: Misoprostol (Cytotec) 25 mcg VAG Q4H PRN PRN Reason: Cervical Ripening Last Admin: 03/11/20 20:54 Dose: 25 mcg Documented by: Misoprostol (Cytotec) 25 mcg PO Q4HR EAN Last Admin: 03/11/20 20:54 Dose: 25 mcg Documented by: Nalbuphine HCl (Nubain) 10 mg IVPUSH Q1H PRN PRN Reason: Pain (severe 7-10) Ondansetron HCl (Zofran Odt) 4 mg PO Q6H PRN PRN Reason: Nausea/Vomiting Sodium Chloride (Saline Flush) 10 ml FLUSH ASDIRECTED PRN PRN Reason: Keep Vein Open Sodium Chloride (Saline Flush) 2.5 ml FLUSH ASDIRECTED PRN PRN Reason: Keep Vein Open Sodium Chloride (Normal Saline) 10 ml IV ASDIRECTED PRN PRN Reason: IV Use Sterile Water (Sterile Water For Irrigation) 1,000 ml IRR ASDIRECTED PRN PRN Reason: delivery Terbutaline Sulfate (Brethine) 0.25 mg SUBCUT ASDIRECTED PRN PRN Reason: Tacysystole - Exam General: Reports: Alert, Oriented, Cooperative, No Acute Distress Lungs: Reports: Normal Respiratory Effort Cardiovascular: Reports: Regular Rate, Regular Rhythm GI/Abdominal Exam: Soft, Non-Tender (Female) Exam: Deferred Rectal (Female) Exam: Deferred Back Exam: Reports: Normal Inspection, Full Range of Motion Extremities: Normal Inspection, Normal Range of Motion, Non-Tender, Normal Capillary Refill Skin: Reports: Warm, Dry, Intact Neurological: Reports: No New Focal Deficit, Normal Speech, Normal Tone, Strength Equal Bilateral, Sensation Intact Psy/Mental Status: Reports: Alert, Normal Affect, Normal Mood
== END 2020-03-12 00:37 | disposition home or self-care (01) ==
LOC: MW.OBCHECK 00:13 → MW.OB 00:14 → MW.OBCHECK 00:30 → MW.OB 00:30
PROVIDERS: ADMIT Obstetrics & Gynecology; ATTEND Obstetrics & Gynecology
DX: O09.513 Supervision of elderly primigravida, third trimester (principal); O09.813 Supervision of pregnancy resulting from assisted reproductive technology, third trimester; O24.410 Gestational diabetes mellitus in pregnancy, diet controlled; Z3A.38 38 weeks gestation of pregnancy; Z79.82 Long term (current) use of aspirin; Z90.49 Acquired absence of other specified parts of digestive tract
CPT/HCPCS: 36415; 85027; 86592; 86850; 86900; 86901; A9270; J7120

== ENCOUNTER 2020-03-13 08:34 | Inpatient (IN) | payer BC ==
[2020-03-13] MEDS ORDERED: hydrOXYzine Pamoate 25 MG Cap PO ONE (09:06)
[2020-03-13] MEDS ORDERED: Sodium Chloride 0.9% 2.5 ML Syringe FLUSH PRN ×2 (09:48→10:09)
[2020-03-13] MEDS ORDERED: Sodium Chloride 0.9% 10 ML SDV IV PRN ×2 (09:48→10:09)
[2020-03-13] MEDS ORDERED: Sodium Chloride 0.9% 10 ML Syringe FLUSH PRN ×2 (09:48→10:09)
[2020-03-13] MEDS ORDERED: Methylergonovine 0.2 MG/1 ML Amp IM PRN (10:09)
[2020-03-13] MEDS ORDERED: Lidocaine 1% 50 ML MDV INJECT PRN (10:09)
[2020-03-13] MEDS ORDERED: Misoprostol 200 MCG Tab PO PRN (10:09)
[2020-03-13] MEDS ORDERED: Carboprost Tromethamine 250 MCG/1 ML Amp IM PRN (10:09)
[2020-03-13] MEDS ORDERED: Tranexamic Acid 1,000 MG in Sodium Chloride 0.9% 100 ML IV PRN (10:09)
[2020-03-13] MEDS ORDERED: Nalbuphine 10 MG/1 ML Vial IVPUSH PRN (10:09)
[2020-03-13] MEDS ORDERED: Water For Irrigation,Sterile 1,000 ML Container IRR PRN (10:09)
[2020-03-13] MEDS ORDERED: Dinoprostone 10 MG Insert VAG ONE ×2 (10:12→12:15)
[2020-03-13] MEDS ORDERED: Oxytocin/0.9 % Sodium Chloride 30 UNIT/500 ML BAG IV SCH ×2 (10:15→18:15)
[2020-03-13] MEDS ORDERED: Lactated Ringers 1,000 ML IV SCH (10:15)
[2020-03-13] MEDS: Lactated Ringers 1,000 ML IV SCH ×2 (10:40→21:08)
--- NOTE | 2020-03-13 10:57 | PCM.LDHP ---
L&D History of Present Illness - General Date of Service: 03/13/20 Admit Problem/Dx: Patient Status Order with Admit Dx/Problem 03/13/20 08:20 Patient Status [ADT] Routine 03/13/20 10:09 Patient Status [ADT] Routine Admission Diagnosis/Problem Admission Diagnosis/Problem - planned 03/13/20 10:52 Vidhya is a 39 yo at 39+1 weeks gestation (ELVIRA 03/19/2020) that presents to L&D today with C/O leaking of clear fluid since 1 am today and increasing intermittent uterine cramping/contractions every 5-6 minutes since 6 am . Reports adequate movement. Denies roxanne vaginal bleeding at this time. A pos, RI, GBS neg. EFW via [place] 7-8 lbs. Pertinent medical history includes: A1GDM, AMA, conception via fertility treatment. NKDA. Medications: PNV, 81 mg aspirin. Patient has no other complaints or concerns at this time except nagging persistent discomfort associated with prodromal early labor, not relieved with acetaminophen, baths, and repositioning. 03/13/20 10:55 03/13/20 10:56 03/13/20 10:58 Source of Information: Patient History Limitations: Reports: No Limitations - History of Present Illness Timing/Duration: Reports: constant/continuous, getting worse Location, : Reports: Abdomen, Lower back Quality: Reports: Ache, Sharp Severity: Severe Pain Score: 9 Improves with: Reports: None Worsens with: Reports: None Associated Symptoms: Reports: N - Related Data Allergies/Adverse Reactions: Allergies Allergy/AdvReac Type Severity Reaction Status Date / Time No Known Allergies Allergy Verified 03/04/20 11:43 Home Medications: Home Meds Aspirin 81 mg PO DAILY 12/19/19 [History] Pnv No.95/Ferrous Fum/Folic AC [ Caplet] 1 tab PO DAILY 12/19/19 [History] Past Medical History HEENT History: Reports: None Cardiovascular History: Reports: None Respiratory History: Reports: None Gastrointestinal History: Reports: None Genitourinary History: Reports: Renal Calculus 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: , Spontaneous : 1 Para: 0 LMP (Approximate): Musculoskeletal History: Reports: None Neurological History: Reports: None Psychiatric History: Reports: None Endocrine/Metabolic History: Reports: Diabetes, Gestational Hematologic History: Reports: None Immunologic History: Reports: None Oncologic (Cancer) History: Reports: None Dermatologic History: Reports: None - Infectious Disease History Infectious Disease History: Reports: None - Past Surgical History HEENT Surgical History: Reports: Adenoidectomy, Tonsillectomy GI Surgical History: Reports: Appendectomy Social & Family History - Family History Family Medical History: No Pertinent Family History - Tobacco Use Tobacco Use Status *Q: Never Tobacco User - Caffeine Use Caffeine Use: Reports: Coffee, Soda, Tea - Alcohol Use Alcohol Use History: No - Recreational Drug Use Recreational Drug Use: No H&P Review of Systems - Review of Systems: Review Of Systems: Comprehensive ROS is negative, except as noted in HPI. General: Reports: No Symptoms HEENT: Reports: No Symptoms Pulmonary: Reports: No Symptoms Cardiovascular: Reports: No Symptoms Gastrointestinal: Reports: No Symptoms Genitourinary: Reports: No Symptoms Musculoskeletal: Reports: No Symptoms Skin: Reports: No Symptoms Psychiatric: Reports: No Symptoms Neurological: Reports: No Symptoms Hematologic/Lymphatic: Reports: No Symptoms Immunologic: Reports: No Symptoms L&D Exam - Exam Exam: See Below - Vital Signs Vital Signs: Hemodynamically stable, afebrile. See flowsheet. Weight: 225 lb - OB Specific Contraction Frequency (min): Occassional Contraction Intensity: Mild to Moderate Movement: Active Heart Tones: Present Heart Tones per Min: 125 Heart Rate (FHR) Variability: Moderate (6-25 bmp) Presentation: Vertex (Confirmed vertex via handheld TAUS) - Lambert Score Lambert Score Cervix Position: Midposition Lambert Score Consistency: Medium Lambert Score Effacement: >80% Lambert Score Dilation: 1-2 cm Lambert Score Infant's Station: -2 Lambert Score Total: 7 - Exam General: Alert, Oriented, Cooperative, Moderate Distress HEENT: Conjunctiva Clear, Hearing Intact, Mucosa Moist & [place], PERRLA Neck: Supple, Trachea Midline Lungs: Clear to Auscultation, Normal Respiratory Effort Cardiovascular: Regular Rate, Regular Rhythm GI/Abdominal Exam: Normal Bowel Sounds, Soft, Non-Tender, No Organomegaly, No Distention Rectal Exam: Deferred Genitourinary: Normal external exam, Normal bimanual exam, Normal speculum exam, Enlarged uterus (Gravid uterus), Vaginal discharge (+ SROM, scant to small clear fluid) Back Exam: Normal Inspection, Full Range of Motion Extremities: Normal Inspection, Normal Range of Motion, Non-Tender, No Pedal Edema, Normal Capillary Refill Skin: Warm, Dry, Intact Neurological: Cranial Nerves Intact, Reflexes Equal Bilateral Psychiatric: Alert, Normal Affect, Normal Mood - Patient Data Lab Results Last 24 hrs: Laboratory Results - last 24 hr 03/13/20 Range/Units 08:45 Membrane Rupture POSITIVE - Problem List (1) SROM (spontaneous rupture of membranes) SNOMED Code(s): 493890260 ICD Code: OIA3240 - Status: Acute Priority: High Current Visit: Yes (2) GDM (gestational diabetes mellitus), class A1 SNOMED Code(s): 36527380 ICD Code: O24.410 - GESTATIONAL DIABETES MELLITUS IN , DIET CONTROLLED Status: Acute Priority: High Current Visit: Yes (3) AMA (advanced maternal age) primigravida 35+ SNOMED Code(s): 73195911 ICD Code: O09.519 - SUPERVISION OF ELDERLY PRIMIGRAVIDA, UNSPECIFIED TRIMESTER Status: Acute Priority: High Current Visit: Yes Qualifiers: Trimester: third trimester Qualified Code(s): O09.513 - Supervision of elderly primigravida, third trimester (4) 39 weeks gestation of SNOMED Code(s): 75335448 ICD Code: Z3A.39 - 39 WEEKS GESTATION OF Status: Acute Priority: High Current Visit: Yes Problem List Initiated/Reviewed/Updated: Yes Orders Last 24hrs: Active Orders 24 hr Category Date Time Status Patient Status [ADT] Routine ADT 03/13/20 10:09 Active Heart Tones [RC] CONTINUOUS Care 03/13/20 10:09 Active Non Stress Test [RC] PER UNIT ROUTINE Care 03/13/20 09:04 Active Non Stress Test [RC] PER UNIT ROUTINE Care 03/13/20 10:09 Active May Shower [RC] ASDIRECTED Care 03/13/20 10:09 Active Notify Provider [RC] PRN Care 03/13/20 10:09 Active Peripheral IV Care [RC] . DIRECTED Care 03/13/20 09:48 Active Up ad Irene [RC] ASDIRECTED Care 03/13/20 09:04 Active Up ad Irene [RC] ASDIRECTED Care 03/13/20 10:09 Active Vaginal Exam [RC] Click to Edit Care 03/13/20 09:04 Active Vaginal Exam [RC] PRN Care 03/13/20 10:09 Active Vital Signs [RC] PER UNIT ROUTINE Care 03/13/20 09:04 Active Vital Signs [RC] PER UNIT ROUTINE Care 03/13/20 10:09 Active CBC W/O DIFF,HEMOGRAM [HEME] Routine Lab 03/13/20 10:09 Ordered RPR (SYPHILIS SERO) W/ RFLX [REF] Routine Lab 03/13/20 10:09 Ordered TYPE AND SCREEN [BBK] Routine Lab 03/13/20 10:09 Ordered Butorphanol [Stadol] Med 03/13/20 10:09 Active 1 mg IVPUSH Q1H PRN Carboprost Tromethamine [Hemabate DS] Med 03/13/20 10:09 Active 250 mcg IM ASDIRECTED PRN Dinoprostone [Cervidil] Med 03/13/20 10:12 Once 10 mg VAG ONETIME ONE Lactated Ringers [Ringers, Lactated] 1,000 ml Med 03/13/20 10:00 Active IV ASDIRECTED Lactated Ringers [Ringers, Lactated] 1,000 ml Med 03/13/20 10:15 Active IV ASDIRECTED Lidocaine 1% [Xylocaine 1%] Med 03/13/20 10:09 Active 50 ml INJECT ONETIME PRN Methylergonovine [Methergine] Med 03/13/20 10:09 Active 0.2 mg IM ASDIRECTED PRN Nalbuphine [Nubain] Med 03/13/20 10:09 Active 10 mg IVPUSH Q1H PRN Oxytocin/0.9 % Sodium Chloride [Oxytocin 30 Unit/500 ML Med 03/13/20 10:15 Active -NS] 30 unit in 500 ml IV TITRATE Sodium Chloride 0.9% [Normal Saline] Med 03/13/20 09:48 Active 10 ml IV ASDIRECTED PRN Sodium Chloride 0.9% [Normal Saline] Med 03/13/20 10:09 Active 10 ml IV ASDIRECTED PRN Sodium Chloride 0.9% [Saline Flush] Med 03/13/20 09:48 Active 10 ml FLUSH ASDIRECTED PRN Sodium Chloride 0.9% [Saline Flush] Med 03/13/20 10:09 Active 10 ml FLUSH ASDIRECTED PRN Sodium Chloride 0.9% [Saline Flush] Med 03/13/20 09:48 Active 2.5 ml FLUSH ASDIRECTED PRN Sodium Chloride 0.9% [Saline Flush] Med 03/13/20 10:09 Active 2.5 ml FLUSH ASDIRECTED PRN Tranexamic Acid [Cyklokapron] 1,000 mg Med 03/13/20 10:09 Active Sodium Chloride 0.9% [Normal Saline] 100 ml IV ONETIME Water For Irrigation,Sterile [Sterile Water for Med 03/13/20 10:09 Active Irrigation] 1,000 ml IRR ASDIRECTED PRN miSOPROStoL [Cytotec] Med 03/13/20 10:09 Active 200 mcg PO ONETIME PRN Scalp Electrode [WOMSER] Per Unit Routine Oth 03/13/20 10:09 Ordered Peripheral IV Insertion Adult [OM.PC] Routine Oth 03/13/20 09:48 Ordered Peripheral IV Insertion Adult [OM.PC] Routine Oth 03/13/20 10:09 Ordered Resuscitation Status Routine Resus Stat 03/13/20 09:04 Ordered Medication Orders Butorphanol Tartrate (Stadol) 1 mg IVPUSH Q1H PRN PRN Reason: Pain Carboprost Tromethamine (Hemabate Ds) 250 mcg IM ASDIRECTED PRN PRN Reason: Post Hemorrhage Dinoprostone (Cervidil) 10 mg VAG ONETIME ONE Stop: 03/13/20 10:13 Lactated Ringer's (Ringers, Lactated) 1,000 mls @ 999 mls/hr IV ASDIRECTED EAN Lactated Ringer's (Ringers, Lactated) 1,000 mls @ 150 mls/hr IV ASDIRECTED EAN Oxytocin/Sodium Chloride (Oxytocin 30 Unit/500 Ml-Ns) 30 unit in 500 mls @ 999 mls/hr IV TITRATE EAN Tranexamic Acid 1,000 mg/ (Sodium Chloride) 110 mls @ 660 mls/hr IV ONETIME PRN PRN Reason: Bleeding Lidocaine HCl (Xylocaine 1%) 50 ml INJECT ONETIME PRN PRN Reason: Laceration repair Methylergonovine Maleate (Methergine) 0.2 mg IM ASDIRECTED PRN PRN Reason: Post Hemorrhage Misoprostol (Cytotec) 200 mcg PO ONETIME PRN PRN Reason: Post Hemorrhage Nalbuphine HCl (Nubain) 10 mg IVPUSH Q1H PRN PRN Reason: Pain (severe 7-10) Sodium Chloride (Saline Flush) 10 ml FLUSH ASDIRECTED PRN PRN Reason: Keep Vein Open Sodium Chloride (Saline Flush) 2.5 ml FLUSH ASDIRECTED PRN PRN Reason: Keep Vein Open Sodium Chloride (Normal Saline) 10 ml IV ASDIRECTED PRN PRN Reason: IV Use Sodium Chloride (Saline Flush) 10 ml FLUSH ASDIRECTED PRN PRN Reason: Keep Vein Open Sodium Chloride (Saline Flush) 2.5 ml FLUSH ASDIRECTED PRN PRN Reason: Keep Vein Open Sodium Chloride (Normal Saline) 10 ml IV ASDIRECTED PRN PRN Reason: IV Use Sterile Water (Sterile Water For Irrigation) 1,000 ml IRR ASDIRECTED PRN PRN Reason: delivery Assessment/Plan Comment:: SROM confirmed via Amnisure. Admit for observation to L&D in anticipation of of term viable . FHR Cat I. Uterine irritability and occasional mild to moderate contractions noted. 1000 ml LR bolus infusing due to suspected dehydration re: prolonged prodromal early labor. FSBSs q 8 hours. Plan cervadil insertion for IOL if lack of spontaneous labor persists, may remain in place x 12 hours. Expectant management, reassess cervical dilation ~3 pm. May ambulate and hydrotherapy as desired after reactive NST achieved; repeat NST per orders. May receive epidural if desired between 4-5 cm[address] See new orders. Dr. Ambrocio notified and agreeable with POC.
[2020-03-13] MEDS: Butorphanol 1 MG/ML SDV IVPUSH PRN ×3 (12:06→19:27)
[2020-03-13] MEDS ORDERED: Terbutaline 1 MG/ML SDV SUBCUT PRN (18:09)
[2020-03-13] MEDS ORDERED: Misoprostol 25 MCG (1/4 of 100 MCG) Tab VAG PRN ×2 (18:09)
[2020-03-13] MEDS ORDERED: fentaNYL 100 MCG/2 ML SDV ONE (21:01)
[2020-03-13] MEDS ORDERED: Ropivacaine HCl/PF 100 ML ONE (21:02)
--- NOTE | 2020-03-13 21:39 | PCM.SN.2 ---
- Free Text/Narrative Note: Anesthesia time [id number] 2106- Bedside for MAYA for labor analgesia as requested by patient. H & P performed with patient participation. Discussed epidural risks, benefits, alternatives, LITHOGRAPHIC PLATEMAKER, and anesthesia coverage. All questions answered and concerns addressed. Consent signed with RN witness. "Time out" completed. 2110- Sitting position, monitors on (BP, pulse ox), VSS. Sterile technique employed (sterile gloves, mask, hat). Chlorhexidine to prep., sterile plastic drape, lido 1% for localization. 2115- First attempt successful at L3-4 with ADRIA at 6.5cm. Catheter threaded to 12cm without resistance or paresthesias. 2117- Negative to aspiration for both CSF and heme, test dose negative. 2124- Infusion started (0.2% ropivicaine with 2mcg/ml fentanyl at 8ml/hr, 4ml Q10min LITHOGRAPHIC PLATEMAKER option, 34 ml/hr lockout). Bolus of 6ml ropiv./fentanyl given. 2152- Reassessed, T10 level achieved, pt reports satisfactory pain control, VSS.
--- NOTE | 2020-03-13 21:51 | PCM.PREANE ---
Preanesthetic Assessment - Procedure Proposed Procedure: Late entry, bedside for H & P with patient cooperation at 2107. Limited pakistani used, as well as translation from . Patient repeated back to demonstrate understanding. Epidural requested by patient for labor analgesia. Discussed risks, benefits, alternatives, OSTEOLOGY TEACHER usage, and anesthesia coverage. All questions answered and concerns addressed. Consent signed by patient with RN witness. - Anesthesia/Transfusion/Family Hx Anesthesia History: Prior Anesthesia Without Reaction (GA for tonsils, and other procedures with no anesthetic complications) Family History of Anesthesia Reaction: No Transfusion History: No Prior Transfusion(s) Additional History: Diet-controlled gestational diabetes. BG well-controlled at this time. - Review of Systems General: No Symptoms Pulmonary: No Symptoms Cardiovascular: No Symptoms Gastrointestinal: No Symptoms Neurological: No Symptoms Other: Reports: None - Physical Assessment Height: 1.65 m Weight: 102.058 kg ASA Class: 2 Mental Status: Alert & Oriented x3 Airway Class: Mallampati = 2 Dentition: Reports: Normal Dentition Thyro-Mental Finger Breadths: 3 Mouth Opening Finger Breadths: 3 ROM/Head Extension: Full Lungs: Normal Respiratory Effort Cardiovascular: Regular Rate, Regular Rhythm - Lab Values: Laboratory Last Values WBC 15.93 K/uL (4.0-11.0) H 03/13/20 10:35 RBC 4.38 M/uL (4.30-5.90) 03/13/20 10:35 Hgb 13.0 g/dL (12.0-16.0) 03/13/20 10:35 Hct 39.4 % (36.0-46.0) 03/13/20 10:35 MCV 90.0 fL (80.0-98.0) 03/13/20 10:35 MCH 29.7 pg (27.0-32.0) 03/13/20 10:35 MCHC 33.0 g/dL (31.0-37.0) 03/13/20 10:35 RDW Std Deviation 45.6 fl (28.0-62.0) 03/13/20 10:35 RDW Coeff of Rafael 14 % (11.0-15.0) 03/13/20 10:35 Plt Count 207 K/uL (150-400) 03/13/20 10:35 MPV 10.90 fL (7.40-12.00) 03/13/20 10:35 Nucleated RBC % 0.0 /100WBC 03/13/20 10:35 Nucleated RBCs # 0 K/uL 03/13/20 10:35 POC Glucose 88 mg/dL (60-110) 03/13/20 14:29 Membrane Rupture POSITIVE 03/13/20 08:45 Blood Type A POSITIVE 03/13/20 10:35 Antibody Screen NEGATIVE 03/13/20 10:35 - Allergies Allergies/Adverse Reactions: Allergies Allergy/AdvReac Type Severity Reaction Status Date / Time No Known Allergies Allergy Verified 03/04/20 11:43 - Acknowledgements Anesthesia Type Planned: Epidural Pt an Appropriate Candidate for the Planned Anesthesia: Yes Alternatives and Risks of Anesthesia Discussed w Pt/Guardian: Yes Pt/Guardian Understands and Agrees with Anesthesia Plan: Yes PreAnesthesia Questionnaire HEENT History: Reports: None Cardiovascular History: Reports: None Respiratory History: Reports: None Gastrointestinal History: Reports: None Genitourinary History: Reports: Renal Calculus ORE WASHER History: Reports: , Spontaneous Musculoskeletal History: Reports: None Neurological History: Reports: None Psychiatric History: Reports: None Endocrine/Metabolic History: Reports: Diabetes, Gestational Hematologic History: Reports: None Immunologic History: Reports: None Oncologic (Cancer) History: Reports: None Dermatologic History: Reports: None - Infectious Disease History Infectious Disease History: Reports: None - Past Surgical History HEENT Surgical History: Reports: Adenoidectomy, Tonsillectomy GI Surgical History: Reports: Appendectomy - SUBSTANCE USE Tobacco Use Status *Q: Never Tobacco User Tobacco Use Within Last Twelve Months: No Second Hand Smoke Exposure: No Recreational Drug Use History: No - HOME MEDS Home Medications: Home Meds Aspirin 81 mg PO DAILY 12/19/19 [History] Pnv No.95/Ferrous Fum/Folic AC [ Caplet] 1 tab PO DAILY 12/19/19 [History] - CURRENT (IN HOUSE) MEDS Current Meds: Current Medications Butorphanol Tartrate (Stadol) 1 mg IVPUSH Q1H PRN PRN Reason: Pain Last Admin: 03/13/20 19:27 Dose: 1 mg Documented by: Carboprost Tromethamine (Hemabate Ds) 250 mcg IM ASDIRECTED PRN PRN Reason: Post Hemorrhage Lactated Ringer's (Ringers, Lactated) 1,000 mls @ 999 mls/hr IV ASDIRECTED EAN Last Admin: 03/13/20 21:08 Dose: 999 mls/hr Documented by: Lactated Ringer's (Ringers, Lactated) 1,000 mls @ 150 mls/hr IV ASDIRECTED EAN Last Infusion: 03/13/20 20:54 Dose: 999 mls/hr Documented by: Oxytocin/Sodium Chloride (Oxytocin 30 Unit/500 Ml-Ns) 30 unit in 500 mls @ 999 mls/hr IV TITRATE EAN Tranexamic Acid 1,000 mg/ (Sodium Chloride) 110 mls @ 660 mls/hr IV ONETIME PRN PRN Reason: Bleeding Oxytocin/Sodium Chloride (Oxytocin 30 Unit/500 Ml-Ns) 30 unit in 500 mls @ 2 mls/hr IV TITRATE EAN; Protocol Last Titration: 03/13/20 21:30 Dose: 2 munits/min, 2 mls/hr Documented by: Lidocaine HCl (Xylocaine 1%) 50 ml INJECT ONETIME PRN PRN Reason: Laceration repair Methylergonovine Maleate (Methergine) 0.2 mg IM ASDIRECTED PRN PRN Reason: Post Hemorrhage Misoprostol (Cytotec) 200 mcg PO ONETIME PRN PRN Reason: Post Hemorrhage Misoprostol (Cytotec) 25 mcg VAG ONETIME PRN PRN Reason: Cervical Ripening Misoprostol (Cytotec) 25 mcg VAG Q4H PRN PRN Reason: Cervical Ripening Nalbuphine HCl (Nubain) 10 mg IVPUSH Q1H PRN PRN Reason: Pain (severe 7-10) Sodium Chloride (Saline Flush) 10 ml FLUSH ASDIRECTED PRN PRN Reason: Keep Vein Open Sodium Chloride (Saline Flush) 2.5 ml FLUSH ASDIRECTED PRN PRN Reason: Keep Vein Open Sodium Chloride (Normal Saline) 10 ml IV ASDIRECTED PRN PRN Reason: IV Use Sodium Chloride (Saline Flush) 10 ml FLUSH ASDIRECTED PRN PRN Reason: Keep Vein Open Sodium Chloride (Saline Flush) 2.5 ml FLUSH ASDIRECTED PRN PRN Reason: Keep Vein Open Sodium Chloride (Normal Saline) 10 ml IV ASDIRECTED PRN PRN Reason: IV Use Sterile Water (Sterile Water For Irrigation) 1,000 ml IRR ASDIRECTED PRN PRN Reason: delivery Terbutaline Sulfate (Brethine) 0.25 mg SUBCUT ASDIRECTED PRN PRN Reason: Tacysystole Discontinued Medications Dinoprostone (Cervidil) 10 mg VAG ONETIME ONE Stop: 03/13/20 12:16 Last Admin: 03/13/20 12:24 Dose: 10 mg Documented by: Fentanyl (Sublimaze) Confirm Administered Dose 200 mcg .ROUTE .STK-MED ONE Stop: 03/13/20 21:02 Hydroxyzine Pamoate (Vistaril) 50 mg PO ONETIME ONE Stop: 03/13/20 09:07 Ropivacaine (Naropin 0.2%) Confirm Administered Dose 100 mls @ as directed .ROUTE .STK-MED ONE Stop: 03/13/20 21:03
[2020-03-14] MEDS ORDERED: Bisacodyl 10 MG Supp RECTAL PRN (06:00)
[2020-03-14] MEDS ORDERED: Docusate Sodium 100 MG Cap PO PRN (06:00)
[2020-03-14] MEDS ORDERED: Ibuprofen 400 MG Tab PO PRN (06:00)
[2020-03-14] MEDS ORDERED: Witch Hazel Medicated Pads 40/Jar TOP PRN (06:00)
[2020-03-14] MEDS ORDERED: Acetaminophen 500 MG Tab PO PRN ×2 (06:00)
[2020-03-14] MEDS ORDERED: Benzocaine/Menthol 20%-0.5% Spray 78 GM Cannister TOP PRN (06:00)
[2020-03-14] MEDS ORDERED: Ibuprofen 800 MG Tab PO PRN (06:00)
[2020-03-14] MEDS ORDERED: Lanolin 100% Cream 7 GM Tube TOP PRN (06:00)
[2020-03-14] MEDS ORDERED: oxyCODONE 5 MG Tab PO PRN (06:00)
--- NOTE | 2020-03-14 06:07 | PCM.DEL ---
L & D Note - General Info Date of Service: 03/14/20 Mother's Due Date: 03/19/20 - Delivery Note Labor: Augmented by ARM, Augmented by Oxytocin Cervical Ripening Method: Prostaglandin E2 Delivery Outcome: Livebirth Infant Delivery Method: Spontaneous Vaginal Delivery-Single Infant Delivery Mode: Spontaneous Presentation: Left Occiput Anterior (RODDY) Nuchal Cord: None (Foot nuchal identified and reduced upon delivery), Reduced Anesthesia Type: Epidural Amniotic Fluid Description: Clear Episiotomy Type: None Laceration: 1st Degree, Perineal Suture type: Vicryl Suture size: 3-0 Placenta: Spontaneous Cord: 3 Vessels Estimated Blood Loss: 250 Resuscitation Needed: No : Stimulated, Warmed, [place] Used Score 5 min: 8 Score 10 min: 9 Second Stage Interventions: Reports: Encouragement Given, Pushing Effectively, Pushing, Stirrups/Leg Supports Delivery Comments (Free Text/Narrative):: Vidhya is a 39 yo S/P uncomplicated of viable term vigorous NBM at 39+2 weeks gestation (ELVIRA 03/19/2020). A pos, RI, GBS neg. head delivered RODDY, posterior arm gently reduced, body delivered with ease with the next pushes. Asynclitic cephalic molding and left foot nuchal identified/reduced upon delivery. NBM placed to low maternal abdomen, warmed dried stimulated with spontaneous cries. Umbilical cord left intact x 2 min, clamped x 2, cut by FOB. Placenta delivered spontaneously ~ 3 min S/P NBM, intact, 3VC, velamentous cord insertion noted upon examination. Uterus firm @U, scant to small rubra lochia, no clots. 1st degree perineal laceration repaired with 3.[address], hemostatic. EBL ~250 ml. Apgars 8/9. weight 7 lb 4 oz. Prolonged SROM noted ~28 hrs, patient hemodynamically stable, afebrile. Induction Criteria - Lambert Score Lambert Score Dilation: 1-2 cm Lambert Score Effacement: >80% Lambert Score 's Station: -2 Lambert Score Consistency: Soft Lambert Score Cervix Position: Midposition Lambert Score Total: 8 Lambert Score Presenting Part: Reports: Cephalic - Induction Gestational Age >/= 39 wks: Yes Medical Indication: AMA, GDM Estimated Pelvis: Reports: Adequate Reassuring Monitoring Strip: Yes - Augmentation Estimated Pelvis: Reports: Adequate Weight Estimated:: Reports: AGA Estimated Weight if LGA: 7 lb Reassuring Monitoring Strip: Yes - General Info Date of Service: 03/14/20 Admission Dx/Problem (Free Text): Patient Status Order with Admit Dx/Problem 03/13/20 08:20 Patient Status [ADT] Routine 03/13/20 10:09 Patient Status [ADT] Routine Admission Diagnosis/Problem Admission Diagnosis/Problem - planned 03/13/20 10:52 Vidhya is a 39 yo at 39+1 weeks gestation (ELVIRA 03/19/2020) that presents to L&D today with C/O leaking of clear fluid since 1 am today and increasing intermittent uterine cramping/contractions every 5-6 minutes since 6 am . Reports adequate movement. Denies roxanne vaginal bleeding at this time. A pos, RI, GBS neg. EFW via [place] 7-8 lbs. Pertinent medical history includes: A1GDM, AMA, conception via fertility treatment. NKDA. Medications: PNV, 81 mg aspirin. Patient has no other complaints or concerns at this time except nagging persistent discomfort associated with prodromal early labor, not relieved with acetaminophen, baths, and repositioning. 03/13/20 10:55 03/13/20 10:56 03/13/20 10:58 Functional Status: Reports: Pain Controlled Pain Score: 0 - Review of Systems General: Reports: No Symptoms HEENT: Reports: No Symptoms Pulmonary: Reports: No Symptoms Cardiovascular: Reports: No Symptoms Gastrointestinal: Reports: No Symptoms Genitourinary: Reports: No Symptoms Musculoskeletal: Reports: No Symptoms Skin: Reports: No Symptoms Neurological: Reports: No Symptoms Psychiatric: Reports: No Symptoms - Patient Data Vitals - Most Recent: BP 123/64, HR 69, T 99.3 F, RR 16, 100% on RA Weight - Most Recent: 225 lb Lab Results Last 24 Hours: Laboratory Results - last 24 hr 03/13/20 03/13/20 03/13/20 Range/Units 08:45 10:35 10:35 WBC 15.93 H (4.0-11.0) K/uL RBC 4.38 (4.30-5.90) M/uL Hgb 13.0 (12.0-16.0) g/dL Hct 39.4 (36.0-46.0) % MCV 90.0 (80.0-98.0) fL MCH 29.7 (27.0-32.0) pg MCHC 33.0 (31.0-37.0) g/dL RDW Std Deviation 45.6 (28.0-62.0) fl RDW Coeff of Rafael 14 (11.0-15.0) % Plt Count 207 (150-400) K/uL MPV 10.90 (7.40-12.00) fL Nucleated RBC % 0.0 /100WBC Nucleated RBCs # 0 K/uL POC Glucose (60-110) mg/dL Membrane Rupture POSITIVE Blood Type A POSITIVE Antibody Screen NEGATIVE 03/13/20 03/13/20 Range/Units 14:29 22:32 WBC (4.0-11.0) K/uL RBC (4.30-5.90) M/uL Hgb (12.0-16.0) g/dL Hct (36.0-46.0) % MCV (80.0-98.0) fL MCH (27.0-32.0) pg MCHC (31.0-37.0) g/dL RDW Std Deviation (28.0-62.0) fl RDW Coeff of Rafael (11.0-15.0) % Plt Count (150-400) K/uL MPV (7.40-12.00) fL Nucleated RBC % /100WBC Nucleated RBCs # K/uL POC Glucose 88 93 (60-110) mg/dL Membrane Rupture Blood Type Antibody Screen Med Orders - Current: Current Medications Acetaminophen (Tylenol Extra Strength) 500 mg PO Q4H PRN PRN Reason: Pain Acetaminophen (Tylenol Extra Strength) 1,000 mg PO Q4H PRN PRN Reason: Pain Benzocaine/Menthol (Dermoplast Pain Relief 20%-0.5% [place]) 78 gm TOP ASDIRECTED PRN PRN Reason: Perineal Comfort Measure Bisacodyl (Dulcolax) 10 mg RECTAL ONETIME PRN PRN Reason: Constipation Docusate Sodium (Colace) 100 mg PO BID PRN PRN Reason: Constipation Emollient Ointment (Lansinoh Hpa) 0 gm TOP ASDIRECTED PRN PRN Reason: Sore Nipples Ibuprofen (Motrin) 400 mg PO Q4H PRN PRN Reason: Pain Ibuprofen (Motrin) 800 mg PO Q6H PRN PRN Reason: Pain Oxycodone HCl (Oxycodone) 5 mg PO Q2H PRN PRN Reason: Pain Witch January (Tucks) 1 pad TOP ASDIRECTED PRN PRN Reason: comfort care Discontinued Medications Butorphanol Tartrate (Stadol) 1 mg IVPUSH Q1H PRN PRN Reason: Pain Last Admin: 03/13/20 19:27 Dose: 1 mg Documented by: Carboprost Tromethamine (Hemabate Ds) 250 mcg IM ASDIRECTED PRN PRN Reason: Post Hemorrhage Dinoprostone (Cervidil) 10 mg VAG ONETIME ONE Stop: 03/13/20 12:16 Last Admin: 03/13/20 12:24 Dose: 10 mg Documented by: Fentanyl (Sublimaze) Confirm Administered Dose 200 mcg .ROUTE .STK-MED ONE Stop: 03/13/20 21:02 Hydroxyzine Pamoate (Vistaril) 50 mg PO ONETIME ONE Stop: 03/13/20 09:07 Lactated Ringer's (Ringers, Lactated) 1,000 mls @ 999 mls/hr IV ASDIRECTED [facility] Last Admin: 03/13/20 21:08 Dose: 999 mls/hr Documented by: Lactated Ringer's (Ringers, Lactated) 1,000 mls @ 150 mls/hr IV ASDIRECTED [facility] Last Infusion: 03/13/20 20:54 Dose: 999 mls/hr Documented by: Oxytocin/Sodium Chloride (Oxytocin 30 Unit/500 Ml-Ns) 30 unit in 500 mls @ 999 mls/hr IV TITRATE EAN Last Admin: 03/14/20 05:35 Dose: 999 mls/hr Documented by: Tranexamic Acid 1,000 mg/ (Sodium Chloride) 110 mls @ 660 mls/hr IV ONETIME PRN PRN Reason: Bleeding Oxytocin/Sodium Chloride (Oxytocin 30 Unit/500 Ml-Ns) 30 unit in 500 mls @ 2 mls/hr IV TITRATE EAN; Protocol Last Titration: 03/14/20 03:50 Dose: 6 munits/min, 6 mls/hr Documented by: Ropivacaine (Naropin 0.2%) Confirm Administered Dose 100 mls @ as directed .ROUTE .[facility] ONE Stop: 03/13/20 21:03 Lidocaine HCl (Xylocaine 1%) 50 ml INJECT ONETIME PRN PRN Reason: Laceration repair Methylergonovine Maleate (Methergine) 0.2 mg IM ASDIRECTED PRN PRN Reason: Post Hemorrhage Misoprostol (Cytotec) 200 mcg PO ONETIME PRN PRN Reason: Post Hemorrhage Misoprostol (Cytotec) 25 mcg VAG ONETIME PRN PRN Reason: Cervical Ripening Misoprostol (Cytotec) 25 mcg VAG Q4H PRN PRN Reason: Cervical Ripening Nalbuphine HCl (Nubain) 10 mg IVPUSH Q1H PRN PRN Reason: Pain (severe 7-10) Sodium Chloride (Saline Flush) 10 ml FLUSH ASDIRECTED PRN PRN Reason: Keep Vein Open Sodium Chloride (Saline Flush) 2.5 ml FLUSH ASDIRECTED PRN PRN Reason: Keep Vein Open Sodium Chloride (Normal Saline) 10 ml IV ASDIRECTED PRN PRN Reason: IV Use Sodium Chloride (Saline Flush) 10 ml FLUSH ASDIRECTED PRN PRN Reason: Keep Vein Open Sodium Chloride (Saline Flush) 2.5 ml FLUSH ASDIRECTED PRN PRN Reason: Keep Vein Open Sodium Chloride (Normal Saline) 10 ml IV ASDIRECTED PRN PRN Reason: IV Use Sterile Water (Sterile Water For Irrigation) 1,000 ml IRR ASDIRECTED PRN PRN Reason: delivery Terbutaline Sulfate (Brethine) 0.25 mg SUBCUT ASDIRECTED PRN PRN Reason: Tacysystole - Exam General: Alert, Oriented, Cooperative, No Acute Distress HEENT: Pupils Equal, Pupils Reactive, Mucous Membr. Moist/[place] Neck: Supple Lungs: Clear to Auscultation, Normal Respiratory Effort Cardiovascular: Regular Rate, Regular Rhythm GI/Abdominal Exam: Normal Bowel Sounds, Soft, Non-Tender, No Organomegaly, No Distention (Female) Exam: Normal External Exam, Enlarged Uterus ( uterus, firm U-1), Vaginal Bleeding (Scant to small rubra lochia) Back Exam: Normal Inspection, Full Range of Motion Extremities: Normal Inspection, Normal Range of Motion, Non-Tender, No Pedal Edema, Normal Capillary Refill Skin: Warm, Dry, Intact Wound/Incisions: No Drainage (1st degree laceration repaired, hemostatic) Neurological: No New Focal Deficit (BLE epidural analgesia) Psy/Mental Status: Alert, Normal Affect, Normal Mood - Problem List & Annotations (1) (spontaneous vaginal delivery) SNOMED Code(s): 599421245 Code(s): O80 - ENCOUNTER FOR FULL-TERM UNCOMPLICATED DELIVERY Status: Acute Priority: High Current Visit: Yes (2) GDM (gestational diabetes mellitus), class A1 SNOMED Code(s): 74765539 Code(s): O24.410 - GESTATIONAL DIABETES MELLITUS IN , DIET CONTROLLED Status: Acute Priority: High Current Visit: Yes (3) AMA (advanced maternal age) primigravida 35+ SNOMED Code(s): 03032504 Code(s): O09.519 - SUPERVISION OF ELDERLY PRIMIGRAVIDA, UNSPECIFIED TRIMESTER Status: Acute Priority: High Current Visit: Yes Qualifiers: Trimester: third trimester Qualified Code(s): O09.513 - Supervision of elderly primigravida, third trimester (4) Lactating mother SNOMED Code(s): 647229760, 580008133 Code(s): Z39.1 - ENCOUNTER FOR CARE AND EXAMINATION OF LACTATING MOTHER Status: Acute Priority: High Current Visit: Yes - Problem List Review Problem List Initiated/Reviewed/Updated: Yes - My Orders Last 24 Hours: My Active Orders 03/13/20 12:00 POC Glucose [Blood Glucose Check, Bedside] [RC] DAILY 03/14/20 06:00 Patient Status [ADT] Routine May Shower [RC] ASDIRECTED Up ad Irene [RC] ASDIRECTED Vital Signs [RC] PER UNIT ROUTINE Acetaminophen [Tylenol Extra Strength] 1,000 mg PO Q4H PRN Acetaminophen [Tylenol Extra Strength] 500 mg PO Q4H PRN Benzocaine/Menthol [Dermoplast Pain Relief 20%-0.5% [place]] 78 gm TOP ASDIRECTED PRN Docusate Sodium [Colace] 100 mg PO BID PRN Ibuprofen [Motrin] 400 mg PO Q4H PRN Ibuprofen [Motrin] 800 mg PO Q6H PRN Lanolin [Lansinoh HPA] See Dose Instructions TOP ASDIRECTED PRN bisacodyL [Dulcolax] 10 mg RECTAL ONETIME PRN oxyCODONE 5 mg PO Q2H PRN witch January [Tucks] 1 pad TOP ASDIRECTED PRN Assess Lochia [WOMSER] Per Unit Routine Assess Uterine Involution [WOMSER] Per Unit Routine Ice Therapy [OM.PC] Per Unit Routine Perineal Care [OM.PC] Per Unit Routine Peripheral IV Discontinue [OM.PC] Routine Sitz Bath [OM.PC] Per Unit Routine Resuscitation Status Routine 03/14/20 06:01 Cooling Warming Measures [RC] ASDIRECTED 03/15/20 05:11 HEMOGLOBIN/HEMATOCRIT,HH [HEME] Timed - Plan Plan:: Admit inpatient to unit S/P uncomplicated of viable term NBM. Prolonged SROM ~28 hours prior to noted, likely due to spontaneously resolved asynclitism. FSBSs daily d/t A1GDM. D/C epidural now, may ambulate with assistance in 2-4 hours. If patient has not voided spontaneously within 6 hours of , notify provider. May receive consultation support if desired or needed. See new orders. Dr. Ambrocio notified and agreeable with POC.
--- NOTE | 2020-03-14 13:33 | PCM48HPAN ---
Post Anesthesia Note - EVALUATION WITHIN 48HRS OF ANESTHETIC Vital Signs in Normal Range: Yes Patient Participated in Evaluation: Yes Respiratory Function Stable: Yes Airway Patent: Yes Cardiovascular Function Stable: Yes Hydration Status Stable: Yes Pain Control Satisfactory: Yes (Denies pain) Nausea and Vomiting Control Satisfactory: Yes (Denies nausea, eating/drinking well) Mental Status Recovered: Yes Vital Signs: Last Vital Signs Temp 37.4 C 03/14/20 08:22 Pulse 72 03/14/20 08:15 Resp 18 03/14/20 08:15 BP 112/59 L 03/14/20 08:15 Pulse Ox 97 03/14/20 08:15 - COMMENTS/OBSERVATIONS Free Text/Narrative:: Ambulating well, reports full return of strength and sensation to BLE.
--- NOTE | 2020-03-15 08:14 | PCM.DCSUM1 ---
Discharge Summary - Hospital Course Free Text/Narrative:: Vidhya is a 39 yo PP1 S/P uncomplicated of viable term vigorous NBM at 39+2 weeks gestation (ELVIRA 03/19/2020). A pos, RI, GBS neg. Patient has no complaints or concerns at this time. Patient is bottle and well, resting comfortably in bed with in nursery. Patient reports she is eating, voiding, ambulating independently and without difficulty. Patient denies any problems or concerns at this time except mild to moderate in termittent uterine cramping relieved with Tylenol and Ibuprofen. Patient reports moderate vaginal bleeding with no clots. Patient verbalizes her readiness to be discharged home today. Diagnosis: Stroke: No - Discharge Data Discharge Date: 03/15/20 Discharge Disposition: Home, Self-Care 01 Condition: Good - Referral to Home Health Primary Care Physician: PCP None - Discharge Diagnosis/Problem(s) (1) (spontaneous vaginal delivery) SNOMED Code(s): 648618508 ICD Code: O80 - ENCOUNTER FOR FULL-TERM UNCOMPLICATED DELIVERY Status: Acute Priority: High Current Visit: Yes (2) GDM (gestational diabetes mellitus), class A1 SNOMED Code(s): 23129745 ICD Code: O24.410 - GESTATIONAL DIABETES MELLITUS IN , DIET CONTROLLED Status: Acute Priority: High Current Visit: Yes (3) AMA (advanced maternal age) primigravida 35+ SNOMED Code(s): 97605254 ICD Code: O09.519 - SUPERVISION OF ELDERLY PRIMIGRAVIDA, UNSPECIFIED TRIMESTER Status: Acute Priority: High Current Visit: Yes Qualifiers: Trimester: third trimester Qualified Code(s): O09.513 - Supervision of elderly primigravida, third trimester (4) Lactating mother SNOMED Code(s): 800681207, 551593285 ICD Code: Z39.1 - ENCOUNTER FOR CARE AND EXAMINATION OF LACTATING MOTHER Status: Acute Priority: High Current Visit: Yes - Patient Instructions Diet: Usual Diet as Tolerated, Regular Diet as Tolerated, Drink 8-10+ Glasses/Day Activity: As Tolerated, No Strenuous Activities, Rest and Relax Today Driving: May Drive Today Showering/Bathing: May Shower Showering/Bathing, Other: Sitz bath for perineal comfort Notify Provider of: Fever, Increased Pain, Swelling and Redness, Drainage, Nausea and/or Vomiting - Discharge Plan *PRESCRIPTION DRUG MONITORING PROGRAM REVIEWED*: No *COPY OF PRESCRIPTION DRUG MONITORING REPORT IN PATIENT MAXWELL: No Prescriptions/Med Rec: Docusate Sodium [Colace] 100 mg PO BID PRN #60 cap PRN Reason: Constipation Ibuprofen [Motrin] 800 mg PO Q8H PRN #90 tablet PRN Reason: Pain Home Medications: Home Meds Pnv No.95/Ferrous Fum/Folic AC [ Caplet] 1 tab PO DAILY 12/19/19 [History] Docusate Sodium [Colace] 100 mg PO BID PRN #60 cap 03/15/20 [Rx] Ibuprofen [Motrin] 800 mg PO Q8H PRN #90 tablet 03/15/20 [Rx] Oxygen Therapy Mode: Room Air - Discharge Summary/Plan Comment DC Time >30 min.: Yes Discharge Summary/Plan Comment: Hemodynamically stable, afebrile. Independent with ADLs, pain well controlled. Ibuprofen prescription sent to pharmacy. Warning S/Ss, when to call for help discussed, no questions or concerns. consultation and support as needed. F/U in office in 6 weeks for visit or sooner if problem arise. - General Info Date of Service: 03/15/20 Admission Dx/Problem (Free Text: Patient Status Order with Admit Dx/Problem 03/13/20 08:20 Patient Status [ADT] Routine 03/13/20 10:09 Patient Status [ADT] Routine Admission Diagnosis/Problem Admission Diagnosis/Problem - planned 03/13/20 10:52 Vidhya is a 39 yo at 39+1 weeks gestation (ELVIRA 03/19/2020) that presents to L&D today with C/O leaking of clear fluid since 1 am today and increasing intermittent uterine cramping/contractions every 5-6 minutes since 6 am . Reports adequate movement. Denies roxanne vaginal bleeding at this time. A pos, RI, GBS neg. EFW via [place] 7-8 lbs. Pertinent medical history includes: A1GDM, AMA, conception via fertility treatment. NKDA. Medications: PNV, 81 mg aspirin. Patient has no other complaints or concerns at this time except nagging persistent discomfort associated with prodromal early labor, not relieved with acetaminophen, baths, and repositioning. 03/13/20 10:55 03/13/20 10:56 03/13/20 10:58 Functional Status: Reports: Pain Controlled, Tolerating Diet, Ambulating, Urinating - Review of Systems General: Reports: No Symptoms HEENT: Reports: No Symptoms Pulmonary: Reports: No Symptoms Cardiovascular: Reports: No Symptoms Gastrointestinal: Reports: No Symptoms Genitourinary: Reports: No Symptoms Musculoskeletal: Reports: No Symptoms Skin: Reports: No Symptoms Neurological: Reports: No Symptoms Psychiatric: Reports: No Symptoms - Patient Data Vitals - Most Recent: Last Vital Signs Temp 98.2 F 03/15/20 07:34 Pulse 70 03/15/20 07:34 Resp 16 03/15/20 07:34 BP 113/73 03/15/20 07:34 Pulse Ox 98 03/15/20 07:34 Weight - Most Recent: 225 lb Lab Results - Last 24 hrs: Laboratory Results - last 24 hr 03/15/20 03/15/20 Range/Units 06:30 07:32 Hgb 10.5 L (12.0-16.0) g/dL Hct 32.6 L (36.0-46.0) % POC Glucose 78 (60-110) mg/dL Med Orders - Current: Current Medications Acetaminophen (Tylenol Extra Strength) 500 mg PO Q4H PRN PRN Reason: Pain Acetaminophen (Tylenol Extra Strength) 1,000 mg PO Q4H PRN PRN Reason: Pain Benzocaine/Menthol (Dermoplast Pain Relief 20%-0.5% [place]) 78 gm TOP ASDIRECTED PRN PRN Reason: Perineal Comfort Measure Bisacodyl (Dulcolax) 10 mg RECTAL ONETIME PRN PRN Reason: Constipation Docusate Sodium (Colace) 100 mg PO BID PRN PRN Reason: Constipation Last Admin: 03/14/20 08:22 Dose: 100 mg Documented by: Emollient Ointment (Lansinoh Hpa) 0 gm TOP ASDIRECTED PRN PRN Reason: Sore Nipples Ibuprofen (Motrin) 400 mg PO Q4H PRN PRN Reason: Pain Ibuprofen (Motrin) 800 mg PO Q6H PRN PRN Reason: Pain Last Admin: 03/14/20 08:22 Dose: 800 mg Documented by: Oxycodone HCl (Oxycodone) 5 mg PO Q2H PRN PRN Reason: Pain Witch January (Tucks) 1 pad TOP ASDIRECTED PRN PRN Reason: comfort care Last Admin: 03/14/20 08:21 Dose: 1 tub Documented by: Discontinued Medications Butorphanol Tartrate (Stadol) 1 mg IVPUSH Q1H PRN PRN Reason: Pain Last Admin: 03/13/20 19:27 Dose: 1 mg Documented by: Carboprost Tromethamine (Hemabate Ds) 250 mcg IM ASDIRECTED PRN PRN Reason: Post Hemorrhage Dinoprostone (Cervidil) 10 mg VAG ONETIME ONE Stop: 03/13/20 12:16 Last Admin: 03/13/20 12:24 Dose: 10 mg Documented by: Fentanyl (Sublimaze) Confirm Administered Dose 200 mcg .ROUTE .STK-MED ONE Stop: 03/13/20 21:02 Hydroxyzine Pamoate (Vistaril) 50 mg PO ONETIME ONE Stop: 03/13/20 09:07 Lactated Ringer's (Ringers, Lactated) 1,000 mls @ 999 mls/hr IV ASDIRECTED EAN Last Admin: 03/13/20 21:08 Dose: 999 mls/hr Documented by: Lactated Ringer's (Ringers, Lactated) 1,000 mls @ 150 mls/hr IV ASDIRECTED EAN Last Infusion: 03/13/20 20:54 Dose: 999 mls/hr Documented by: Oxytocin/Sodium Chloride (Oxytocin 30 Unit/500 Ml-Ns) 30 unit in 500 mls @ 999 mls/hr IV TITRATE EAN Tranexamic Acid 1,000 mg/ (Sodium Chloride) 110 mls @ 660 mls/hr IV ONETIME PRN PRN Reason: Bleeding Oxytocin/Sodium Chloride (Oxytocin 30 Unit/500 Ml-Ns) 30 unit in 500 mls @ 2 mls/hr IV TITRATE EAN; Protocol Last Titration: 03/14/20 05:35 Dose: 999 munits/min, 999 mls/hr Documented by: Ropivacaine (Naropin 0.2%) Confirm Administered Dose 100 mls @ as directed .ROUTE .STK-MED ONE Stop: 03/13/20 21:03 Lidocaine HCl (Xylocaine 1%) 50 ml INJECT ONETIME PRN PRN Reason: Laceration repair Methylergonovine Maleate (Methergine) 0.2 mg IM ASDIRECTED PRN PRN Reason: Post Hemorrhage Misoprostol (Cytotec) 200 mcg PO ONETIME PRN PRN Reason: Post Hemorrhage Misoprostol (Cytotec) 25 mcg VAG ONETIME PRN PRN Reason: Cervical Ripening Misoprostol (Cytotec) 25 mcg VAG Q4H PRN PRN Reason: Cervical Ripening Nalbuphine HCl (Nubain) 10 mg IVPUSH Q1H PRN PRN Reason: Pain (severe 7-10) Sodium Chloride (Saline Flush) 10 ml FLUSH ASDIRECTED PRN PRN Reason: Keep Vein Open Sodium Chloride (Saline Flush) 2.5 ml FLUSH ASDIRECTED PRN PRN Reason: Keep Vein Open Sodium Chloride (Normal Saline) 10 ml IV ASDIRECTED PRN PRN Reason: IV Use Sodium Chloride (Saline Flush) 10 ml FLUSH ASDIRECTED PRN PRN Reason: Keep Vein Open Sodium Chloride (Saline Flush) 2.5 ml FLUSH ASDIRECTED PRN PRN Reason: Keep Vein Open Sodium Chloride (Normal Saline) 10 ml IV ASDIRECTED PRN PRN Reason: IV Use Sterile Water (Sterile Water For Irrigation) 1,000 ml IRR ASDIRECTED PRN PRN Reason: delivery Terbutaline Sulfate (Brethine) 0.25 mg SUBCUT ASDIRECTED PRN PRN Reason: Tacysystole - Exam General: Reports: Alert, Oriented, Cooperative, No Acute Distress HEENT: Reports: Pupils Equal, Pupils Reactive, Mucous Membr. Moist/[place] Neck: Reports: Supple Lungs: Reports: Clear to Auscultation, Normal Respiratory Effort Cardiovascular: Reports: Regular Rate, Regular Rhythm GI/Abdominal Exam: Normal Bowel Sounds, Soft, Non-Tender, No Organomegaly, No Distention (Female) Exam: Normal External Exam, Enlarged Uterus ( uterus, firm @U), Vaginal Bleeding (Moderate rubra lochia, no clots.), Vaginal Tears (1st de gree perineal laceration, repaired, hemostatic.) Rectal (Female) Exam: Deferred Back Exam: Reports: Normal Inspection, Full Range of Motion Extremities: Normal Inspection, Normal Range of Motion, Non-Tender, No Pedal Edema, Normal Capillary Refill Skin: Reports: Warm, Dry, Intact Wound/Incisions: Reports: No Drainage Neurological: Reports: No New Focal Deficit Psy/Mental Status: Reports: Alert, Normal Affect, Normal Mood
== END 2020-03-15 12:50 | disposition home or self-care (01) | DRG 560 ==
LOC: MW.OBCHECK 08:34 → MW.OB 08:35 → MW.OBCHECK 10:09 → OBSVTOIN 03-14 05:35 → MW.OB 03-14 11:21
PROVIDERS: ADMIT Obstetrics & Gynecology; ATTEND Obstetrics & Gynecology
PROC: 10E0XZZ Delivery of Products of Conception, External Approach (ICD-10-PCS; principal; 2020-03-14)
PROC: 10907ZC Drainage of Amniotic Fluid, Therapeutic from Products of Conception, Via Natural or Artificial Opening (ICD-10-PCS; 2020-03-14)
PROC: 0HQ9XZZ Repair Perineum Skin, External Approach (ICD-10-PCS; 2020-03-14)
PROC: 3E0R3BZ Introduction of Anesthetic Agent into Spinal Canal, Percutaneous Approach (ICD-10-PCS; 2020-03-14)
PROC: 00HU33Z Insertion of Infusion Device into Spinal Canal, Percutaneous Approach (ICD-10-PCS; 2020-03-14)
DX: O24.420 Gestational diabetes mellitus in childbirth, diet controlled (principal); Z3A.39 39 weeks gestation of pregnancy; Z37.0 Single live birth; O70.0 First degree perineal laceration during delivery; O69.81X0 Labor and delivery complicated by cord around neck, without compression, not applicable or unspecified
CPT/HCPCS: 36415; 51702; 59025; 59409; 82962; 84112; 85014; 85018; 85027; 86592; 86850; 86900; 86901; A9270-GY; J0595; J2590; J2795; J3010; J7120

== ENCOUNTER 2022-01-20 05:30 | Inpatient (IN) | payer BC ==
[~2022-01-20 05:30] MED LIST: Misoprostol 25 MCG (1/4 of 100 MCG) Tab PO ONE; Misoprostol 25 MCG (1/4 of 100 MCG) Tab VAG ONE
[2022-01-20] MEDS ORDERED: Misoprostol 25 MCG (1/4 of 100 MCG) Tab PO ONE ×2 (08:00→22:45)
[2022-01-20] MEDS ORDERED: Misoprostol 25 MCG (1/4 of 100 MCG) Tab VAG ONE ×2 (08:00→22:45)
[2022-01-20] MEDS ORDERED: Oxytocin/0.9 % Sodium Chloride 30 UNIT/500 ML BAG IV ONE ×2 (14:32→14:35)
[2022-01-20] MEDS ORDERED: Lactated Ringers 1,000 ML IV ONE ×2 (14:35→15:00)
[2022-01-20] MEDS ORDERED: Phenylephrine HCl In 0.9% NaCl 1 MG/10 ML Vial IVPUSH ONE ×2 (15:08→15:12)
[2022-01-21] MEDS ORDERED: Dexmedetomidine 200 MCG/2 ML SDV IV ONE (13:30)
[2022-01-21] MEDS ORDERED: Ropivacaine HCl/PF 400 MG in Premix Bag 1 BAG IV ONE (13:30)
[2022-01-22] MEDS ORDERED: Ibuprofen 800 MG Tab PO ONE (04:00)
[2022-01-22] MEDS ORDERED: Misoprostol 25 MCG (1/4 of 100 MCG) Tab VAG ONE (08:15)
[2022-01-22] MEDS ORDERED: Misoprostol 25 MCG (1/4 of 100 MCG) Tab PO ONE (09:10)
== END 2022-01-22 22:55 | disposition home or self-care (01) | DRG 560 ==
LOC: MW.OBCHECK 05:30 → MW.ZCENSUS 05:31 → OBSVTOIN 01-21 19:47 → MW.OBCHECK 01-22 12:00 → MW.ZCENSUS 01-22 12:00
PROVIDERS: ADMIT Obstetrics & Gynecology Obstetrics; ATTEND Obstetrics & Gynecology Obstetrics
PROC: 10E0XZZ Delivery of Products of Conception, External Approach (ICD-10-PCS; principal; 2022-01-21)
PROC: 3E0P7VZ Introduction of Hormone into Female Reproductive, Via Natural or Artificial Opening (ICD-10-PCS; 2022-01-21)
PROC: 3E033VJ Introduction of Other Hormone into Peripheral Vein, Percutaneous Approach (ICD-10-PCS; 2022-01-21)
PROC: 3E0R3BZ Introduction of Anesthetic Agent into Spinal Canal, Percutaneous Approach (ICD-10-PCS; 2022-01-21)
DX: O69.81X0 Labor and delivery complicated by cord around neck, without compression, not applicable or unspecified (principal); Z37.0 Single live birth; Z3A.39 39 weeks gestation of pregnancy
CPT/HCPCS: 51702; 59025; 59409; A9270-GY; J2590; J2795; J7120

== ENCOUNTER 2023-07-23 12:46 | Inpatient (IN) | payer BC ==
[2023-07-23] MEDS ORDERED: Bupivacaine 0.5% 10 ML SDV ONE (13:08)
[2023-07-23] MEDS ORDERED: fentaNYL 100 MCG/2 ML SDV ONE (13:10)
[2023-07-23] MEDS ORDERED: Ondansetron 4 MG/2 ML SDV ONE ×2 (13:10→15:14)
[2023-07-23] MEDS ORDERED: Tranexamic Acid IN NACL,ISO-OS 1,000 MG in Premix Bag 1 BAG IV PRN (13:11)
[2023-07-23] MEDS ORDERED: Lidocaine 1% 50 ML MDV INJECT PRN (13:11)
[2023-07-23] MEDS ORDERED: Sodium Chloride 0.9% 2.5 ML Syringe FLUSH PRN ×3 (13:11→16:25)
[2023-07-23] MEDS ORDERED: Methylergonovine 0.2 MG/1 ML Amp IM PRN (13:11)
[2023-07-23] MEDS ORDERED: Water For Irrigation,Sterile 1,000 ML Container IRR PRN (13:11)
[2023-07-23] MEDS ORDERED: Sodium Chloride 0.9% 10 ML Syringe FLUSH PRN ×3 (13:11→16:25)
[2023-07-23] MEDS ORDERED: Misoprostol 200 MCG Tab PO PRN (13:11)
[2023-07-23] MEDS ORDERED: Sodium Chloride 0.9% 20 ML SDV IV PRN ×2 (13:11→15:59)
[2023-07-23] MEDS ORDERED: Carboprost Tromethamine 250 MCG/1 mL Vial IM PRN (13:11)
[2023-07-23] MEDS ORDERED: Oxytocin/0.9 % Sodium Chloride 30 UNIT/500 ML BAG IV SCH (13:15)
[2023-07-23 13:21] LABS: HEMOGLOBIN 12.2 g/dL (12.0-16.0); MEAN CORPUSCULAR HGB CONC 33.9 g/dL (32.0-36.0); MEAN CORPUSCULAR VOLUME 85.7 fL (83.0-99.0); MEAN PLATELET VOLUME 10.1 fL (9.4-12.3); PLATELET COUNT,PLT 234 K/uL (150-400); WHITE BLOOD CELL COUNT,WBC 8.15 K/uL (3.9-11.3)
[2023-07-23] MEDS: Lactated Ringers 1,000 ML IV SCH ×2 (14:27→18:20)
[2023-07-23] MEDS ORDERED: Phenylephrine HCl 0.5 MG/5 ML AMP ONE (14:40)
[2023-07-23] MEDS ORDERED: Tranexamic Acid 1,000 MG/10 ML Vial ONE (15:14)
[2023-07-23] MEDS ORDERED: Phenylephrine HCl In 0.9% NaCl 1 MG/10 ML Syringe ONE (15:14)
[2023-07-23] MEDS ORDERED: Oxytocin 10 Units/1 ML SDV ONE (15:14)
[2023-07-23] MEDS ORDERED: ceFAZolin 2 GM Vial ONE (15:14)
[2023-07-23] MEDS ORDERED: Dexamethasone 4 MG/ML 5 ML MDV ONE (15:14)
[2023-07-23] MEDS ORDERED: Ropivacaine 0.5% 5 MG/ML 30 ML SDV ONE (15:14)
[2023-07-23] MEDS ORDERED: Water For Injection, Sterile 20 ML ONE (15:18)
[2023-07-23] MEDS ORDERED: dexmedeTOMIDine HCl 200 MCG/2 ML SDV ONE (15:18)
[2023-07-23] MEDS ORDERED: Morphine PF 10 MG/10 ML SDV ONE (15:20)
[2023-07-23] MEDS ORDERED: Lactated Ringers 1,000 ML IV SCH (16:00)
[2023-07-23] MEDS ORDERED: Hydrocortisone 2.5% Crm 30 GM Tube TOP PRN (16:25)
[2023-07-23] MEDS ORDERED: Sennosides 8.6 MG Tab PO PRN (16:25)
[2023-07-23] MEDS ORDERED: Witch Hazel Medicated Pads 40/Jar TOP PRN (16:25)
[2023-07-23] MEDS ORDERED: Bisacodyl 10 MG Supp RECTAL PRN (16:25)
[2023-07-23] MEDS ORDERED: Simethicone 80 MG Tab.Chew PO PRN (16:25)
[2023-07-23] MEDS ORDERED: Lanolin 100% Cream 7 GM Tube TOP PRN (16:25)
[2023-07-23] MEDS ORDERED: oxyCODONE 5 MG Tab PO PRN (16:25)
[2023-07-23] MEDS ORDERED: Aluminum Hydroxide/Magnesium Hydroxide/Simethicone XS Susp 30 ML Cup PO PRN (16:25)
[2023-07-23] MEDS ORDERED: Acetaminophen/oxyCODONE 325-5 MG Tab PO PRN ×2 (16:25)
[2023-07-23] MEDS: Ketorolac 30 MG/ML SDV IVPUSH SCH (16:38)
[2023-07-23] MEDS: diphenhydrAMINE 50 MG/ML SDV IVPUSH PRN (19:49)
[2023-07-23] MEDS: Acetaminophen 1,000 MG in Premix Bag 1 BAG IV PRN (22:06)
[2023-07-23] MEDS: Docusate Sodium 100 MG Cap PO SCH (22:07)
[2023-07-23] MEDS: Ondansetron 4 MG/2 ML SDV IVPUSH PRN (23:52)
[2023-07-24 07:26] LABS: HEMATOCRIT 33.1 % (37.0-47.0); HEMOGLOBIN 10.9 g/dL (12.0-16.0)
[2023-07-24] MEDS: Pantoprazole 40 MG Tab.CR PO SCH (09:58)
[2023-07-25] MEDS: Ibuprofen 800 MG Tab PO PRN (12:49)
== END 2023-07-25 15:45 | disposition home or self-care (01) | DRG 540 ==
LOC: MW.OBCHECK 12:46 → MW.OB 12:47 → MW.OBCHECK 13:43 → MW.OB 13:44 → OBSVTOIN 15:44 → MW.OB 21:58
PROVIDERS: ADMIT Obstetrics & Gynecology; ATTEND Obstetrics & Gynecology Obstetrics
PROC: 10D00Z1 Extraction of Products of Conception, Low, Open Approach (ICD-10-PCS; principal; 2023-07-23)
DX: O32.1XX0 Maternal care for breech presentation, not applicable or unspecified (principal); Z37.0 Single live birth; O34.211 Maternal care for low transverse scar from previous cesarean delivery; O24.420 Gestational diabetes mellitus in childbirth, diet controlled; Z3A.38 38 weeks gestation of pregnancy
CPT/HCPCS: 01958; 36415; 59025; 85014; 85018; 85027; 86592; 86850; 86900; 86901; A9270-GY; J0131; J0665; J0690; J1100; J1200; J1885; J2274; J2371; J2405; J2590; J2795; J3010; J3490; J7120

== ENCOUNTER 2025-01-02 10:10 | Emergency (ER) | payer BC ==
[2025-01-02 12:20] LABS: GLUCOSE,URINE NEGATIVE (NEGATIVE); OCCULT BLOOD,URINE LARGE (NEGATIVE)
[2025-01-02 12:23] LABS: APPEARANCE,URINE BLOODY
[2025-01-02 12:50] LABS: BASOPHILS ABSOLUTE AUTO 0.06 K/uL (0.00-0.20); BASOPHILS PERCENT AUTO 0.9 % (0.0-1.0); EOSINOPHILS ABSOLUTE AUTO 0.11 K/uL (0.00-0.45); EOSINOPHILS PERCENT AUTO 1.7 % (0.0-6.0); IMMATURE GRAN ABSOLUTE AUTO 0.01 K/uL (0.00-0.05); IMMATURE GRAN PERCENT AUTO 0.2 % (0.0-0.4); LYMPHOCYTES ABSOLUTE AUTO 2.17 K/uL (1.00-4.80); LYMPHOCYTES PERCENT AUTO 34.1 % (24.0-44.0); MEAN PLATELET VOLUME 9.5 fL (9.4-12.3); MONOCYTES ABSOLUTE AUTO 0.34 K/uL (0.00-0.80); MONOCYTES PERCENT AUTO 5.3 % (0.0-8.0); NEUTROPHILS ABSOLUTE AUTO 3.68 K/uL (1.80-7.70); NEUTROPHILS PERCENT AUTO 57.8 % (41.0-71.0); NRBC ABSOLUTE 0.00 K/uL (0.00-0.02); NRBC PERCENT 0.0 /100WBC (0.0-0.2); PLATELET COUNT,PLT 249 K/uL (150-400); RED BLOOD CELL COUNT 4.68 M/uL (4.10-5.30); WHITE BLOOD CELL COUNT,WBC 6.37 K/uL (3.9-11.3)
[2025-01-02 13:18] LABS: A/G RATIO 1.1 (0.9-1.6); ALANINE AMINOTRANSFERASE,ALT 19.0 IU/L (14-63); ASPARTATE AMNIOTRANSFERASE,AST 13.0 IU/L (15-37); BILIRUBIN TOTAL 0.8 mg/dL (0.2-1.0); BLOOD UREA NITROGEN,BUN 12.0 mg/dL (7.0-18.0); CARBON DIOXIDE,CO2 27.0 mmol/L (21.0-32.0); CHLORIDE,CL 104.0 mmol/L (98-107); CREATININE 0.8 mg/dL (0.6-1.0); EST CRCL DRUG DOSING (CG) 81.59 mL/min; GLUCOSE RANDOM 91.0 mg/dL (74-106); POTASSIUM,K 3.7 mmol/L (3.5-5.1); PROTEIN TOTAL,TP 7.2 g/dL (6.4-8.2); SODIUM,NA 140.0 mmol/L (136-145)
[2025-01-02 13:31] LABS: ESTIMATED GFR 94.0 mL/min (>60)
== END 2025-01-02 14:24 | disposition home or self-care (01) ==
LOC: EDBD 10:10 → MW.ED 10:10 → MERGE 10:10 → MW.ED 14:24
DX: N93.9 Abnormal uterine and vaginal bleeding, unspecified (principal); Z90.49 Acquired absence of other specified parts of digestive tract; Z75.3 Unavailability and inaccessibility of health-care facilities
CPT/HCPCS: 36415; 80053; 81001; 81025; 84702; 85025; 86900; 86901; 99283; 99284